=== PATIENT | male | born 1955 | race African-American/Black ===

== ENCOUNTER 2016-12-16 05:27 | Inpatient (IN) | payer OTHER ==
[2016-12-16] VITALS (11 sets, daily range): BP systolic 136–165; BP diastolic 83–105; PULSE 59–85; TEMP 36.6–37.2; O2SAT 93–97; Ht 188 cm; Wt 109.6 kg
[~2016-12-16] VITALS: Ht 188 cm; Wt 109.6 kg
[~2016-12-16 05:27] MED LIST: ALBUAER19 INH; ASPCH81X PO; CLOP1TAB15 PO; CTP/1 PO; EZET10TA47 PO; HYDR-5688 PO; HYT/2 PO; METO-596 PO; NITR0.4S UT
[2016-12-16] MEDS ORDERED: SODIUM CHLORIDE 0.9% 1000ML 1,000 ML IV STA ×2 (05:39→06:28)
[2016-12-16] MEDS ORDERED: HYDROmorphone INJ 1 MG/ML SYR IV STA ×2 (05:39→06:36)
[2016-12-16] MEDS ORDERED: ONDANSETRON INJ 2 MG/ML 2 ML VIAL IV STA (05:39)
--- NOTE | 2016-12-16 05:41 | EMERGENCY ROOM VISIT NOTE ---
History Report prepared by Jori: Rolf Tee Under the Supervision of: Dr. Vincenzo Bhakta M.D. First contact with patient: 05:33 Chief Complaint: KIDNEY STONE Stated Complaint: KIDNEY STONE PAIN History of Present Illness The patient is a 61 year old male who presents to the Emergency Room with complaints of left sided flank pain that began today. He rates his pain an 8.5/ 10 in severity. He has a past medical history of kidney stones. He states that this feels like a kidney stone. His last one was a year and a half ago, and it needed surgery to be removed. He denies any headaches, neck pain, loss of consciousness, chest pain, shortness of breath, or abdominal pain. He is currently nauseated. He is also experiencing cloudy urine that started a couple of days ago. He has only taken Tylenol for the pain that only helped him a little bit. Source of History: patient Onset: today Position: back (left flank) Symptom Intensity: 8.5/10 Quality: sharp Timing: constant Associated Symptoms: + nausea, + urinary symptoms, No LOC, No headache, No neck pain, No chest pain, No SOB, No abdominal pain Review of Systems See HPI for pertinent positives & negatives. A total of 10 systems reviewed and were otherwise negative. Past Medical & Surgical Medical Problems: (1) Asthma, Unspecified, W (Acute) Exacerbation (2) Benign hypertension (3) Coronary artery disease (4) Dyslipidemia (5) Hyperlipidemia Nec/Nos (6) Post percutaneous transluminal coronary angioplasty (7) Unstable angina Family History Cancer Diabetes mellitus Heart disease Hypertension Kidney disease Kidney stones Social History Smoking Status: Never Smoker Alcohol Use: occasionally Drug Use: none Marital Status: Housing Status: lives with significant other Occupation Status: employed Current/Historical Medications Scheduled Aspirin (Aspirin Chewable), 81 MG PO DAILY Clopidogrel (Plavix), 75 MG PO DAILY Ezetimibe (Zetia), 10 MG PO DAILY Hydrochlorothiazide (Hctz), 12.5 MG PO Q2D Isosorbide Mononitrate Ext Rel (Imdur Ext Rel), 60 MG PO QAM Lisinopril (Zestril), 10 MG PO DAILY Metoprolol Tartrate (Lopressor), 100 MG PO DAILY Rosuvastatin Calcium (Crestor), 40 MG PO DAILY Spironolactone (Aldactone), 25 MG PO QAM Allergies Coded Allergies: No Known Allergies (Verified , NKA, 11/15/12) Physical Exam Vital Signs Date Time Temp Pulse Resp B/P (MAP) Pulse Ox O2 Delivery O2 Flow Rate FiO2 12/16/16 06:46 70 20 142/98 94 Room Air 12/16/16 05:30 36.7 72 18 179/117 95 Room Air Physical Exam GENERAL: Patient is uncomfortable appearing and in moderate acute distress. HEENT: No acute trauma, normocephalic atraumatic, mucous membranes moist, no nasal congestion, no scleral icterus. NECK: No stridor, no adenopathy, no meningismus, trachea is midline. LUNGS: No dyspnea. Clear to auscultation and equal bilaterally. No wheeze, no rhonchi. HEART: Regular rate and rhythm. No murmurs, rubs, gallops appreciated. ABDOMEN: Soft, nontender, bowel sounds positive, no masses appreciated, no peritonitis. BACK: No midline tenderness. Left CVA tenderness to palpation. EXTREMITIES: Normal motion all extremities, no cyanosis, no edema. NEUROLOGIC: Alert and oriented, no acute motor or sensory deficits, no focal weakness, cranial nerves grossly intact. SKIN: No rash, no jaundice, no diaphoresis. Medical Decision & Procedures ER Provider Diagnostic Interpretation: Radiology results and stated below per my review and radiologist interpretation: CT SCAN OF THE ABDOMEN AND PELVIS WITHOUT IV CONTRAST CLINICAL HISTORY: Left flank pain. COMPARISON STUDY: Abdominal CT dated 04/05/2014. TECHNIQUE: CT scan of the abdomen and pelvis is performed from the lung bases to the proximal femora. Images are reviewed in the axial, sagittal, and coronal planes. IV contrast was not administered for this examination. Automated dose control exposure was utilized. CT DOSE: 1691.24 mGy.cm FINDINGS: Lung bases: The heart is enlarged and without pericardial effusion. The coronary arteries are densely calcified. The lung bases are clear noting bibasilar atelectasis. There is a small to moderate hiatal hernia. Liver: The unenhanced liver is normal in size, contour, and attenuation. There is no intrahepatic biliary ductal dilatation. Gallbladder: Unremarkable. Spleen: Normal in size and attenuation. Pancreas: Unremarkable. Adrenal glands: Unremarkable. Kidneys: The unenhanced kidneys. There is a 7 mm obstructing calculus in the proximal left ureter at the level of L2 seen on axial image #175. This causes moderate left-sided hydronephrosis. There is associated perinephric stranding and trace fluid. There is an additional 7 mm nonobstructing calculus in the right upper pole. No right renal calculi are identified and there is no right-sided hydronephrosis. There is a 3 cm cyst in the upper pole the right kidney. An additional 1.4 cm cyst is seen in the right lower pole. Abdominal vasculature: The abdominal aorta is normal in course and caliber noting mild atherosclerotic calcification. Bowel: The small bowel and colon are normal in course and caliber. There is moderate diverticulosis of the left colon without CT evidence of acute diverticulitis. Colonic fecal retention is observed. The appendix is well-visualized and normal. Peritoneum: There is no intraperitoneal free air or abdominal ascites. There is a fat-containing umbilical hernia. Lymphadenopathy: None. Pelvic viscera: The bladder, prostate, and seminal vesicles are normal as visualized. Skeletal structures: No lytic or blastic lesions are seen. Mild lumbosacral spondylosis is observed. A large disc bulge is noted at L4-L5. There is bony overgrowth seen anteriorly at the symphysis. IMPRESSION: 1. There is a 7 mm obstructing calculus in the proximal left ureter. This causes moderate left-sided hydronephrosis. 2. An additional nonobstructing left calculus is identified. 3. Cardiomegaly. 4. Moderate diverticulosis of the left colon without CT evidence of acute diverticulitis. 5. Additional findings as above. Electronically signed by: Trip Carmona M.D. 12/16/2016 6:56 AM Dictated Date/Time: 12/16/2016 6:48 AM Laboratory Results 12/16/16 05:48 Red Blood Count 4.43, Mean Corpuscular Volume 92.3, Mean Corpuscular Hemoglobin 30.9, Mean Corpuscular Hemoglobin Concent 33.5, Mean Platelet Volume 9.8, Neutrophils (%) (Auto) 70.5, Lymphocytes (%) (Auto) 16.5, Monocytes (%) (Auto) 6.6, Eosinophils (%) (Auto) 6.0, Basophils (%) (Auto) 0.2, Neutrophils # (Auto) 5.85, Lymphocytes # (Auto) 1.37, Monocytes # (Auto) 0.55, Eosinophils # (Auto) 0.50, Basophils # (Auto) 0.02 12/16/16 05:48 Test 12/16/16 05:40 12/16/16 05:48 Urine Color YELLOW Urine Appearance CLOUDY (CLEAR) Urine pH 5.0 (4.5-7.5) Urine Specific [place] >= 1.030 (1.000-1.030) Urine Protein 2+ (NEG) Urine Glucose (UA) NEG (NEG) Urine Ketones TRACE (NEG) Urine Occult Blood 3+ (NEG) Urine Nitrite NEG (NEG) Urine Bilirubin NEG (NEG) Urine Urobilinogen NEG (NEG) Urine Leukocyte Esterase NEG (NEG) Urine RBC >30 /hpf (0-4) Urine WBC 5-10 /hpf (0-5) Urine Epithelial Cells >30 /lpf (0-5) Urine Bacteria 1+ (NEG) White Blood Count 8.31 K/uL (4.8-10.8) Red Blood Count 4.43 M/uL (4.7-6.1) Hemoglobin 13.7 g/dL (14.0-18.0) Hematocrit 40.9 % (42-52) Mean Corpuscular Volume 92.3 fL (80-100) Mean Corpuscular Hemoglobin 30.9 pg (25-34) Mean Corpuscular Hemoglobin Concent 33.5 g/dl (32-36) Platelet Count 208 K/uL (130-400) Mean Platelet Volume 9.8 fL (7.4-10.4) Neutrophils (%) (Auto) 70.5 % Lymphocytes (%) (Auto) 16.5 % Monocytes (%) (Auto) 6.6 % Eosinophils (%) (Auto) 6.0 % Basophils (%) (Auto) 0.2 % Neutrophils # (Auto) 5.85 K/uL (1.4-6.5) Lymphocytes # (Auto) 1.37 K/uL (1.2-3.4) Monocytes # (Auto) 0.55 K/uL (0.11-0.59) Eosinophils # (Auto) 0.50 K/uL (0-0.5) Basophils # (Auto) 0.02 K/uL (0-0.2) RDW Standard Deviation 46.4 fL (36.4-46.3) RDW Coefficient of Variation 13.7 % (11.5-14.5) Immature Granulocyte % (Auto) 0.2 % Immature Granulocyte # (Auto) 0.02 K/uL (0.00-0.02) Anion Gap 4.0 mmol/L (3-11) Est Creatinine Clear Calc Drug Dose 69.9 ml/min Estimated GFR () 58.2 Estimated GFR (Non- 50.2 BUN/Creatinine Ratio 16.6 (10-20) Calcium Level 9.3 mg/dl (8.5-10.1) Total Bilirubin 0.4 mg/dl (0.2-1) Direct Bilirubin < 0.1 mg/dl (0-0.2) Aspartate Amino Transf (AST/SGOT) 19 U/L (15-37) Alanine Aminotransferase (ALT/SGPT) 55 U/L (12-78) Alkaline Phosphatase 83 U/L (45-117) Total Protein 7.6 gm/dl (6.4-8.2) Albumin 3.9 gm/dl (3.4-5.0) Lipase 285 U/L (73-393) Laboratory results as reviewed by me. Medications Administered Medications (Trade) Dose Ordered Sig/Cynthia Route Start Time Stop Time Status Last Admin Dose Admin Hydromorphone HCl (Dilaudid Inj) 1 mg NOW STAT IV 12/16/16 05:39 12/16/16 05:41 DC 12/16/16 05:49 1 MG Ondansetron HCl (Zofran Inj) 4 mg NOW STAT IV 12/16/16 05:39 12/16/16 05:41 DC 12/16/16 05:49 4 MG Sodium Chloride 1,000 ml @ 999 mls/hr Q1H1M STAT IV 12/16/16 05:39 12/16/16 06:39 DC 12/16/16 05:48 999 MLS/HR Sodium Chloride 1,000 ml @ 999 mls/hr Q1H1M STAT IV 12/16/16 06:28 12/16/16 07:28 DC 12/16/16 06:44 999 MLS/HR Hydromorphone HCl (Dilaudid Inj) 1 mg NOW STAT IV 12/16/16 06:36 12/16/16 06:37 DC 12/16/16 06:45 1 MG ED Course 0533: The patient was evaluated in room B6. A complete history and physical exam was performed. 0539: Ordered Sodium Chloride 1000 ml @ 999 mls/hr IV, Zofran Inj 4 mg IV, Dilaudid Inj 1 mg IV 0628: Ordered Sodium Chloride 1000 ml @ 999 mls/hr IV 0634: I was informed that the patient is having increased pain. I will order him more pain medication. 0636: Ordered Dilaudid Inj 1 mg IV 0730: Upon reevaluation, the patient is resting. Discussed results and treatment plan with the patient. He verbalized understanding and agreement with the treatment plan. The patient will be evaluated for further management. Medical Decision Differential: Renal Colic, Pyelonephritis, Hydronephrosis, Appendicitis, Diverticulitis, Retroperitoneal Bleed/Infection, Aortic Pathology, MSK, Neurologic Pathology, amongst other pathologies entertained. Medication Reconciliation: I attest that I have personally reviewed the patient 's current medication list. Blood Pressure Screening: Patient was found to have a slightly elevated blood pressure due to circumstances. I do not believe that the patient requires hypertension monitoring. 61 yr old male arrives with left flank pain sudden onset this afternoon. Associated nausea. History of 2mm distal left ureteral stone requiring surgical removal. Today with 7 mm proximal stone and moderate hydro. He has stable Cr but with his history, need for repetitive dosing narcotics and after discussing options with patient, we will bring him in for further monitoring and treatment. Consults Time Called: 724 Consulting Physician: Ajith Kauffman Returned Call: 07 A provider from this medical service will be evaluating the patient for further management and care. Impression Primary Impression: Left ureteral stone Additional Impressions: Hydronephrosis, left Intractable pain Scribe Attestation The scribe's documentation has been prepared under my direction and personally reviewed by me in its entirety. I confirm that the note above accurately reflects all work, treatment, procedures, and medical decision making performed by me. Departure Information Dispostion Being Evaluated By Hospitalist Referrals Ron Treadwell D.OLaw (PCP) Patient Instructions [facility] Problem Qualifiers
[2016-12-16] MEDS ORDERED: ROSU40TA PO (05:50)
[2016-12-16] MEDS ORDERED: HYDR25TA4 PO (05:51)
[2016-12-16] MEDS ORDERED: SPIR25TA PO (05:52)
[2016-12-16] MEDS ORDERED: ISOS60TA25 PO (05:53)
[2016-12-16] MEDS ORDERED: LISI-725 PO (05:54)
[2016-12-16 06:10] LABS: MANUAL MICROSCOPIC REQUIRED? YES; URINE APPEARANCE CLOUDY (CLEAR); URINE BILIRUBIN NEG (NEG); URINE COLOR YELLOW; URINE NITRITE NEG (NEG); URINE SPECIFIC GRAVITY >= 1.030 (1.000-1.030); UROBILINOGEN NEG (NEG)
[2016-12-16 06:13] LABS: BASO % 0.2 %; BASO ABS # 0.02 K/uL (0-0.2); COMPLETE YES; HEMATOCRIT 40.9 % (42-52); IG% 0.2 %; LYMPH % 16.5 %; LYMPH ABS # 1.37 K/uL (1.2-3.4); MEAN CELL VOLUME 92.3 fL (80-100); MEAN CORPUSCULAR HEMOGLOBIN 30.9 pg (25-34); MEAN CORPUSCULAR HGB CONC 33.5 g/dl (32-36); MEAN PLATELET VOLUME 9.8 fL (7.4-10.4); MONO % 6.6 %; NEUT % 70.5 %; PLATELET COUNT 208 K/uL (130-400); RED BLOOD COUNT 4.43 M/uL (4.7-6.1); WHITE BLOOD COUNT 8.31 K/uL (4.8-10.8)
[2016-12-16 06:20] LABS: REVIEW REQ? NO
[2016-12-16 06:21] LABS: ALT/SGPT 55 U/L (12-78); AST/SGOT 19 U/L (15-37); BLOOD UREA NITROGEN 25 mg/dl (7-18); BUN/CREATININE RATIO 16.6 (10-20); CALCIUM 9.3 mg/dl (8.5-10.1); CARBON DIOXIDE 28 mmol/L (21-32); CHLORIDE 109 mmol/L (98-107); GLUCOSE 110 mg/dl (70-99); POTASSIUM 3.8 mmol/L (3.5-5.1); SODIUM 141 mmol/L (136-145)
[2016-12-16 06:24] LABS: ALKALINE PHOSPHATASE 83 U/L (45-117)
[2016-12-16 06:36] LABS: URINE RBC >30 /hpf (0-4)
[2016-12-16 06:42] LABS: URINE BACTERIA 1+ (NEG); ZZUR CULT IF INDIC CLEAN CATCH YES
--- NOTE | 2016-12-16 06:58 | DIAGNOSTIC IMAGING REPORT ---
CT SCAN OF THE ABDOMEN AND PELVIS WITHOUT IV CONTRAST CLINICAL HISTORY: Left flank pain. COMPARISON STUDY: Abdominal CT dated 04/05/2014. TECHNIQUE: CT scan of the abdomen and pelvis is performed from the lung bases to the proximal femora. Images are reviewed in the axial, sagittal, and coronal planes. IV contrast was not administered for this examination. Automated dose control exposure was utilized. CT DOSE: 1691.24 mGy.cm FINDINGS: Lung bases: The heart is enlarged and without pericardial effusion. The coronary arteries are densely calcified. The lung bases are clear noting bibasilar atelectasis. There is a small to moderate hiatal hernia. Liver: The unenhanced liver is normal in size, contour, and attenuation. There is no intrahepatic biliary ductal dilatation. Gallbladder: Unremarkable. Spleen: Normal in size and attenuation. Pancreas: Unremarkable. Adrenal glands: Unremarkable. Kidneys: The unenhanced kidneys. There is a 7 mm obstructing calculus in the proximal left ureter at the level of L2 seen on axial image #175. This causes moderate left-sided hydronephrosis. There is associated perinephric stranding and trace fluid. There is an additional 7 mm nonobstructing calculus in the right upper pole. No right renal calculi are identified and there is no right-sided hydronephrosis. There is a 3 cm cyst in the upper pole the right kidney. An additional 1.4 cm cyst is seen in the right lower pole. Abdominal vasculature: The abdominal aorta is normal in course and caliber noting mild atherosclerotic calcification. Bowel: The small bowel and colon are normal in course and caliber. There is moderate diverticulosis of the left colon without CT evidence of acute diverticulitis. Colonic fecal retention is observed. The appendix is well-visualized and normal. Peritoneum: There is no intraperitoneal free air or abdominal ascites. There is a fat-containing umbilical hernia. Lymphadenopathy: None. Pelvic viscera: The bladder, prostate, and seminal vesicles are normal as visualized. Skeletal structures: No lytic or blastic lesions are seen. Mild lumbosacral spondylosis is observed. A large disc bulge is noted at L4-L5. There is bony overgrowth seen anteriorly at the symphysis. IMPRESSION: 1. There is a 7 mm obstructing calculus in the proximal left ureter. This causes moderate left-sided hydronephrosis. 2. An additional nonobstructing left calculus is identified. 3. Cardiomegaly. 4. Moderate diverticulosis of the left colon without CT evidence of acute diverticulitis. 5. Additional findings as above. Electronically signed by: Trip Carmona M.D. 12/16/2016 6:56 AM Dictated Date/Time: 12/16/2016 6:48 AM
[2016-12-16] MEDS ORDERED: NTRGSL/4 UT (09:09)
[2016-12-16] MEDS ORDERED: UBIQ1CAP8 PO (09:09)
[2016-12-16] MEDS ORDERED: VNTHFA/IN INH (09:11)
[2016-12-16] MEDS ORDERED: MoRPHine SULFATE 2 MG/ML CARP IV PRN (09:15)
[2016-12-16] MEDS ORDERED: ONDANSETRON INJ 2 MG/ML 2 ML VIAL IV PRN ×2 (09:15→17:15)
[2016-12-16] MEDS ORDERED: MoRPHine SULFATE 2 MG/ML CARP ONE (09:29)
[2016-12-16] MEDS: SODIUM CHLORIDE 0.9% 1000ML 1,000 ML IV SCH ×2 (09:40→17:58)
[2016-12-16] MEDS ORDERED: MIDAZOLAM HCL 1 MG/ML 2ML VIAL ONE (15:46)
[2016-12-16] MEDS ORDERED: FENTANYL CITRATE INJ 50 MCG/1 ML 2 ML VIAL ONE (15:46)
--- NOTE | 2016-12-16 15:50 | Urology Consultation ---
History General Date of Service: Dec 16, 2016. Chief Complaint: stones Primary Care Physician: Ron Treadwell D.O. Pt seen a urologist before?: Yes If yes, why?: stones History of Present Illness I am asked by Dr Raines to evaluate and treat patient for ureteral stone with colic. he has had pain and gross hematuria for 2 days. he came to ER this am. He has a 7mm obstructing left upper ureteral stone and a non obstructing 5mm left upper pole stone. He is comfortable but needs narcotics regularly for pain. He had a similar stone in may 2014. Imaging Imaging: CT Laboratory Results Past 24 Hours Test 12/16/16 05:40 12/16/16 05:48 Range/Units Urine Color YELLOW Urine Appearance CLOUDY CLEAR Urine pH 5.0 4.5-7.5 Urine Specific [place] >= 1.030 1.000-1.030 Urine Protein 2+ NEG Urine Glucose (UA) NEG NEG Urine Ketones TRACE NEG Urine Occult Blood 3+ NEG Urine Nitrite NEG NEG Urine Bilirubin NEG NEG Urine Urobilinogen NEG NEG Urine Leukocyte Esterase NEG NEG Urine RBC >30 0-4 /hpf Urine WBC 5-10 0-5 /hpf Urine Epithelial Cells >30 0-5 /lpf Urine Bacteria 1+ NEG White Blood Count 8.31 4.8-10.8 K/uL Red Blood Count 4.43 4.7-6.1 M/uL Hemoglobin 13.7 14.0-18.0 g/dL Hematocrit 40.9 42-52 % Mean Corpuscular Volume 92.3 80-100 fL Mean Corpuscular Hemoglobin 30.9 25-34 pg Mean Corpuscular Hemoglobin Concent 33.5 32-36 g/dl Platelet Count 208 130-400 K/uL Mean Platelet Volume 9.8 7.4-10.4 fL Neutrophils (%) (Auto) 70.5 % Lymphocytes (%) (Auto) 16.5 % Monocytes (%) (Auto) 6.6 % Eosinophils (%) (Auto) 6.0 % Basophils (%) (Auto) 0.2 % Neutrophils # (Auto) 5.85 1.4-6.5 K/uL Lymphocytes # (Auto) 1.37 1.2-3.4 K/uL Monocytes # (Auto) 0.55 0.11-0.59 K/uL Eosinophils # (Auto) 0.50 0-0.5 K/uL Basophils # (Auto) 0.02 0-0.2 K/uL RDW Standard Deviation 46.4 36.4-46.3 fL RDW Coefficient of Variation 13.7 11.5-14.5 % Immature Granulocyte % (Auto) 0.2 % Immature Granulocyte # (Auto) 0.02 0.00-0.02 K/uL Sodium Level 141 136-145 mmol/L Potassium Level 3.8 3.5-5.1 mmol/L Chloride Level 109 98-107 mmol/L Carbon Dioxide Level 28 21-32 mmol/L Anion Gap 4.0 3-11 mmol/L Blood Urea Nitrogen 25 7-18 mg/dl Creatinine 1.50 0.60-1.40 mg/dl Est Creatinine Clear Calc Drug Dose 69.9 ml/min Estimated GFR () 58.2 Estimated GFR (Non- 50.2 BUN/Creatinine Ratio 16.6 10-20 Random Glucose 110 70-99 mg/dl Calcium Level 9.3 8.5-10.1 mg/dl Total Bilirubin 0.4 0.2-1 mg/dl Direct Bilirubin < 0.1 0-0.2 mg/dl Aspartate Amino Transf (AST/SGOT) 19 15-37 U/L Alanine Aminotransferase (ALT/SGPT) 55 12-78 U/L Alkaline Phosphatase 83 45-117 U/L Total Protein 7.6 6.4-8.2 gm/dl Albumin 3.9 3.4-5.0 gm/dl Lipase 285 73-393 U/L Microbiology Results 12/16/16 Urine Culture, Received Pending Labs were reviewed and are within normal limits unless listed below. Labs are available in the chart and at [facility] Problem List Medical Problems: (1) Hydronephrosis, left Status: Acute (2) Intractable pain Status: Acute (3) Left ureteral stone Status: Acute Past History asthma, coronary artery disease, high cholesterol, hypertension, myocardial infarction Past Surgical History: no surgical history Additional Comments: stone surgery 2014 Family History Cancer Diabetes mellitus Heart disease Hypertension Kidney disease Kidney stones dad had stones Social History Hx Tobacco Use In Past Year?: No Smoking: quit greater than 1 year Alcohol: occasional, other Drug use: none Marital status: Housing status: lives alone, lives with family Occupation status: employed Immunizations History of Influenza Vaccine: Yes History of Tetanus Vaccine?: Yes History of Pneumococcal: Yes History of Hepatitis B Vaccine: Unknown History of MDRO No Allergies Coded Allergies: No Known Allergies (Verified , NKA, 11/15/12) Medications Home Medications: Home Meds and Scripts Medications Dose Route/Sig Max Daily Dose Days Date Category Dose Instructions Ventolin Hfa (Albuterol) 200 Puffs/60549 Mcg Aers 2 Puffs INH Q4H PRN 12/16/16 Reported Nitrostat (Nitroglycerin) 0.4 Mg Tab 0.4 Mg UT PRN PRN 12/16/16 Reported Ubiquinol 100 Mg Cap 50 Mg PO DAILY 12/16/16 Reported Zestril (Lisinopril) 20 Mg Tab 10 Mg PO DAILY 12/16/16 Reported 1/2 TABLET DOSE Imdur Ext Rel (Isosorbide Mononitrate) 60 Mg Ertab 60 Mg PO QAM 12/16/16 Reported Aldactone (Spironolactone) 25 Mg Tab 25 Mg PO QAM 12/16/16 Reported Hctz (Hydrochlorothiazide) 25 Mg Tab 12.5 Mg PO Q2D 12/16/16 Reported Crestor (Rosuvastatin Calcium) 40 Mg Tab 40 Mg PO DAILY 12/16/16 Reported Zetia (Ezetimibe) 10 Mg Tab 10 Mg PO DAILY 11/15/12 Reported Plavix (Clopidogrel Bisulfate) 75 Mg Tab 75 Mg PO DAILY 11/15/12 Reported Lopressor (Metoprolol Tartrate) 100 Mg Tab 100 Mg PO DAILY 11/15/12 Reported Aspirin Chewable (Aspirin) 81 Mg Chew 81 Mg PO DAILY 11/15/12 Reported Inpatient Medications: Current Inpatient Medications Medications (Trade) Dose Ordered Sig/Cynthia Route Start Time Stop Time Status Last Admin Dose Admin Morphine Sulfate (MoRPHine SULFATE INJ) 2 mg Q4HWA PRN IV 12/16/16 09:15 12/30/16 09:14 12/16/16 13:30 2 MG Sodium Chloride 1,000 ml @ 125 mls/hr Q8H IV 12/16/16 09:15 01/15/17 09:14 12/16/16 09:40 125 MLS/HR Ondansetron HCl (Zofran Inj) 4 mg Q6H PRN IV 12/16/16 09:15 01/15/17 09:14 12/16/16 13:28 4 MG Review of Systems Review of Systems Constitutional: No fever, No chills Neurological: No dizzy, No passing out, No seizures Endocrine: No tired/sluggish Gastrointestinal: + abdominal pain, + nausea, No vomiting, No constipation, No diarrhea Respiratory: No shortness of breath, No wheezing, No chronic cough Male : + blood in urine, + kidney stones, + nocturia more than once/night, No frequent urination, No painful urination Physical Exam Vital Signs: Vital Signs Past 12 Hours Date Time Temp Pulse Resp B/P (MAP) Pulse Ox O2 Delivery O2 Flow Rate FiO2 12/16/16 14:54 37.2 64 18 155/88 (110) 93 12/16/16 10:47 64 157/90 (112) 12/16/16 09:17 36.7 61 18 165/105 (125) 97 Room Air 12/16/16 09:17 Room Air 12/16/16 09:15 142/98 12/16/16 08:00 94 Room Air 12/16/16 08:00 70 16 144/89 94 Room Air 12/16/16 06:46 70 20 142/98 94 Room Air 12/16/16 05:30 36.7 72 18 179/117 95 Room Air Physical Exam: General Appearance: WD/WN, no apparent distress, + pertinent finding ( overweight) Eyes: bilateral eyes normal inspection ENT: hearing grossly normal Neck: supple, no adenopathy Respiratory/Chest: lungs clear, normal breath sounds, no respiratory distress, no accessory muscle use Cardiovascular: regular rate, rhythm, no edema Extremities: non-tender, normal inspection, no pedal edema, no calf tenderness Neurologic/Psychiatric: alert, normal mood/affect, oriented x 3 Skin: normal color, warm/dry, no rash Assessment & Plan Assessment & Plan left 7mm upper ureteral stone with hydro and mild renal insufficiency plan left uscope laser litho basket stone extraction stent similar to last time will also try to get the left upper renal stone is possible. I explained surgery and he had an opportunity to ask questions and signed consent. 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
--- NOTE | 2016-12-16 16:00 | History and Physical ---
History & Physical Date & Time of Service: Dec 16, 2016 at 09:12 Chief Complaint: Kidney Stone Pain Primary Care Physician: Ron Treadwell D.OLaw History of Present Illness Source: patient, partner, clinic records, hospital records 61 year old male with PMH of Kidney stone with laser lithotripsy about 2 yrs ago , HTN, Dyslipidemia, Ischemic heart dx presents to the Emergency Room with complaints of left sided flank pain that started last night. Pt said that this morning pain got worst. grade his pain about 9/10 in severity. he said that the pain is sharp and radiated across his left L lower abdomen. He said that that this pain feels similar like his kidney stone he had 2 yrs ago. He said that his urine is dark. He denies any headaches, fever, chills, chest pain, palpitation shortness of breath, or abdominal pain. He currently feels nauseated. He has only taken Tylenol for the pain that helped him a little bit. In the ER he received dilaudid that helped with the pain. He had a CT abd/ pelvis done that showed Left obstructing ureteral stone. Past Medical/Surgical History Medical Problems: (1) Asthma, Unspecified, W (Acute) Exacerbation Status: Chronic (2) Benign hypertension Status: Chronic (3) Coronary artery disease Status: Chronic (4) Dyslipidemia Status: Chronic (5) Hyperlipidemia Nec/Nos Status: Chronic (6) Post percutaneous transluminal coronary angioplasty Status: Resolved (7) Unstable angina Status: Resolved Family History Cancer Diabetes mellitus Heart disease Hypertension Kidney disease Kidney stones Social History Smoking Status: Never Smoker Drug Use: none Marital Status: Housing status: lives alone Occupational Status: employed Immunizations History of Influenza Vaccine: Yes History of Tetanus Vaccine?: Yes History of Pneumococcal: Yes History of Hepatitis B Vaccine: Unknown Multi-Drug Resistant Organisms History of MDRO: No Allergies Coded Allergies: No Known Allergies (Verified , NKA, 11/15/12) Home Medications Scheduled Aspirin (Aspirin Chewable), 81 MG PO DAILY Clopidogrel (Plavix), 75 MG PO DAILY Ezetimibe (Zetia), 10 MG PO DAILY Hydrochlorothiazide (Hctz), 12.5 MG PO Q2D Isosorbide Mononitrate Ext Rel (Imdur Ext Rel), 60 MG PO QAM Lisinopril (Zestril), 10 MG PO DAILY Metoprolol Tartrate (Lopressor), 100 MG PO DAILY Rosuvastatin Calcium (Crestor), 40 MG PO DAILY Spironolactone (Aldactone), 25 MG PO QAM Ubiquinol (Ubiquinol), 50 MG PO DAILY Scheduled PRN Albuterol Hfa (Ventolin Hfa), 2 PUFFS INH Q4H PRN for SOB/Wheezing Nitroglycerin (Nitrostat), 0.4 MG UT PRN PRN for Chest Pain Review of Systems Constitutional: No fever, No chills, No weakness Eyes: No worsening of vision, No discharge ENT: No hearing loss, No nasal symptoms, No sore throat Respiratory: No cough, No sputum, No wheezing, No shortness of breath Cardiovascular: No chest pain, No orthopnea, No claudication, No palpitations Abdomen: + nausea, No diarrhea, No constipation Musculoskeletal: No calf pain Genitourinary - Male: + problem reported (dark urine) Neurologic: No memory loss, No paralysis, No weakness Psychiatric: No anxiety, No substance abuse Endocrine: No fatigue Hematologic / Lymphatic: No night sweats Integumentary: No rash, No itch Physical Exam Vital Signs Date Time Temp Pulse Resp B/P (MAP) Pulse Ox O2 Delivery O2 Flow Rate FiO2 12/16/16 08:00 94 Room Air 12/16/16 08:00 70 16 144/89 94 Room Air 12/16/16 06:46 70 20 142/98 94 Room Air 12/16/16 05:30 36.7 72 18 179/117 95 Room Air General Appearance: WD/WN, no apparent distress Head: normocephalic, atraumatic Eyes: normal inspection, PERRL, EOMI ENT: normal ENT inspection, hearing grossly normal Neck: supple, no JVD Respiratory/Chest: lungs clear, normal breath sounds, no respiratory distress, no accessory muscle use Cardiovascular: regular rate, rhythm, no JVD, no murmur Abdomen/GI: normal bowel sounds, soft Back: + left CVA tenderness Extremities/Musculoskelatal: no calf tenderness Neurologic/Psych: rn manager II-XII nml as tested, no motor/sensory deficits, alert, oriented x 3 Skin: warm/dry, no rash Lymphatic: no adenopathy Diagnostics Laboratory Results Results Past 24 Hours Test 12/16/16 05:40 12/16/16 05:48 Range/Units Urine Color YELLOW Urine Appearance CLOUDY CLEAR Urine pH 5.0 4.5-7.5 Urine Specific [place] >= 1.030 1.000-1.030 Urine Protein 2+ NEG Urine Glucose (UA) NEG NEG Urine Ketones TRACE NEG Urine Occult Blood 3+ NEG Urine Nitrite NEG NEG Urine Bilirubin NEG NEG Urine Urobilinogen NEG NEG Urine Leukocyte Esterase NEG NEG Urine RBC >30 0-4 /hpf Urine WBC 5-10 0-5 /hpf Urine Epithelial Cells >30 0-5 /lpf Urine Bacteria 1+ NEG White Blood Count 8.31 4.8-10.8 K/uL Red Blood Count 4.43 4.7-6.1 M/uL Hemoglobin 13.7 14.0-18.0 g/dL Hematocrit 40.9 42-52 % Mean Corpuscular Volume 92.3 80-100 fL Mean Corpuscular Hemoglobin 30.9 25-34 pg Mean Corpuscular Hemoglobin Concent 33.5 32-36 g/dl Platelet Count 208 130-400 K/uL Mean Platelet Volume 9.8 7.4-10.4 fL Neutrophils (%) (Auto) 70.5 % Lymphocytes (%) (Auto) 16.5 % Monocytes (%) (Auto) 6.6 % Eosinophils (%) (Auto) 6.0 % Basophils (%) (Auto) 0.2 % Neutrophils # (Auto) 5.85 1.4-6.5 K/uL Lymphocytes # (Auto) 1.37 1.2-3.4 K/uL Monocytes # (Auto) 0.55 0.11-0.59 K/uL Eosinophils # (Auto) 0.50 0-0.5 K/uL Basophils # (Auto) 0.02 0-0.2 K/uL RDW Standard Deviation 46.4 36.4-46.3 fL RDW Coefficient of Variation 13.7 11.5-14.5 % Immature Granulocyte % (Auto) 0.2 % Immature Granulocyte # (Auto) 0.02 0.00-0.02 K/uL Sodium Level 141 136-145 mmol/L Potassium Level 3.8 3.5-5.1 mmol/L Chloride Level 109 98-107 mmol/L Carbon Dioxide Level 28 21-32 mmol/L Anion Gap 4.0 3-11 mmol/L Blood Urea Nitrogen 25 7-18 mg/dl Creatinine 1.50 0.60-1.40 mg/dl Est Creatinine Clear Calc Drug Dose 69.9 ml/min Estimated GFR () 58.2 Estimated GFR (Non- 50.2 BUN/Creatinine Ratio 16.6 10-20 Random Glucose 110 70-99 mg/dl Calcium Level 9.3 8.5-10.1 mg/dl Total Bilirubin 0.4 0.2-1 mg/dl Direct Bilirubin < 0.1 0-0.2 mg/dl Aspartate Amino Transf (AST/SGOT) 19 15-37 U/L Alanine Aminotransferase (ALT/SGPT) 55 12-78 U/L Alkaline Phosphatase 83 45-117 U/L Total Protein 7.6 6.4-8.2 gm/dl Albumin 3.9 3.4-5.0 gm/dl Lipase 285 73-393 U/L Microbiology Results 12/16/16 Urine Culture, Received Pending Diagnostic Radiology CT SCAN OF THE ABDOMEN AND PELVIS WITHOUT IV CONTRAST CLINICAL HISTORY: Left flank pain. COMPARISON STUDY: Abdominal CT dated 04/05/2014. TECHNIQUE: CT scan of the abdomen and pelvis is performed from the lung bases to the proximal femora. Images are reviewed in the axial, sagittal, and coronal planes. IV contrast was not administered for this examination. Automated dose control exposure was utilized. CT DOSE: 1691.24 mGy.cm FINDINGS: Lung bases: The heart is enlarged and without pericardial effusion. The coronary arteries are densely calcified. The lung bases are clear noting bibasilar atelectasis. There is a small to moderate hiatal hernia. Liver: The unenhanced liver is normal in size, contour, and attenuation. There is no intrahepatic biliary ductal dilatation. Gallbladder: Unremarkable. Spleen: Normal in size and attenuation. Pancreas: Unremarkable. Adrenal glands: Unremarkable. Kidneys: The unenhanced kidneys. There is a 7 mm obstructing calculus in the proximal left ureter at the level of L2 seen on axial image #175. This causes moderate left-sided hydronephrosis. There is associated perinephric stranding and trace fluid. There is an additional 7 mm nonobstructing calculus in the right upper pole. No right renal calculi are identified and there is no right-sided hydronephrosis. There is a 3 cm cyst in the upper pole the right kidney. An additional 1.4 cm cyst is seen in the right lower pole. Abdominal vasculature: The abdominal aorta is normal in course and caliber noting mild atherosclerotic calcification. Bowel: The small bowel and colon are normal in course and caliber. There is moderate diverticulosis of the left colon without CT evidence of acute diverticulitis. Colonic fecal retention is observed. The appendix is well-visualized and normal. Peritoneum: There is no intraperitoneal free air or abdominal ascites. There is a fat-containing umbilical hernia. Lymphadenopathy: None. Pelvic viscera: The bladder, prostate, and seminal vesicles are normal as visualized. Skeletal structures: No lytic or blastic lesions are seen. Mild lumbosacral spondylosis is observed. A large disc bulge is noted at L4-L5. There is bony overgrowth seen anteriorly at the symphysis. IMPRESSION: 1. There is a 7 mm obstructing calculus in the proximal left ureter. This causes moderate left-sided hydronephrosis. 2. An additional nonobstructing left calculus is identified. 3. Cardiomegaly. 4. Moderate diverticulosis of the left colon without CT evidence of acute diverticulitis. 5. Additional findings as above. Electronically signed by: Trip Carmona M.D. 12/16/2016 6:56 AM Dictated Date/Time: 12/16/2016 6:48 AM Impression Assessment and Plan 61 yo male present with Left flank pain LEFT OBSTRUCTING URETERAL STONES WITH HYDRONEPHROSIS CT ABD/PELVIS showed 7 mm obstructing calculus in the proximal left ureter. Continue IVF Morphine for pain UA negative for leukocytes and nitrite Case discussed with Urology dr. Hancock that plans to take him to OR today Will keep NPO for the surgery Will add Flomax daily JEREMI Secondary to Left obstructing ureteral stone with moderate hydronephrosis Creatine on admission 1.5 baseline creatine btw 1.1 to 1.2 Continue IVF avoid nephrotoxic agents Monitor BMP Already took his morning diuretic med Will hold HCTZ and Spironolactone CAD s/p stent Asymptomatic Already took his morning med Continue metoprol/asa/plavix/crestor HTN BP elevated Possible related to pain Hold HCTZ and spironolactone due to JEREMI Continue metoprolol and imdur will add prn hydralazine Dyslipidemia Continue Crestor and ezetimibe DVT px SCDs for now due to anticipate surgery CODE STATUS FULL CODE Level of Care Med/Surg Advanced Directives Existing Living Will: No Existing Power of E Commerce Web Developer: No Resuscitation Status FULL RESUSCITATION VTE Prophylaxis VTE Risk Assessment Done? Y/N: Yes Risk Level: Moderate Given or contraindicated: SCD's
[2016-12-16] MEDS ORDERED: CONRAY 30% 150ML BOTTLE ONE (16:09)
[2016-12-16] MEDS ORDERED: BELLADONNA/OPIUM SUPP 60 MG SUPP PR ONE (16:45)
[2016-12-16] MEDS ORDERED: ONDANSETRON INJ 2 MG/ML 2 ML VIAL ONE (16:45)
[2016-12-16] MEDS ORDERED: METOCLOPRAMIDE HCL INJ 5 MG/ML 2 ML VIAL ONE (16:45)
[2016-12-16] MEDS ORDERED: LIDOCAINE HCL 2% 2 ML VIAL (20MG/ML) ONE (16:45)
[2016-12-16] MEDS ORDERED: PROPOFOL IV EMULSION 10 MG/ML 20 ML VIAL IV ONE (16:45)
--- NOTE | 2016-12-16 17:05 | [facility] Operative Report ---
Operative Report Operative Date Dec 16, 2016. Pre-Operative Diagnosis Left obstructing ureteral stone, wtih renal colic Post-Operative Diagnosis Left obstructing ureteral stone and renal stone Procedure(s) Performed Cystoscopy, Left ureteral laser lithotripsy, Left Ureteral Stent Insertion Surgeon Dr. Hancock Floodplain Manager Surgeon(s) none Estimated Blood Loss 5cc Findings faintly radio-opaque stone left upper ureter. Radiolucent stone left upper pole Fluids 500mL Specimens A. Left ureteral stone fragments Drains 6 fr 24 centiemter double j stent Anesthesia LMA Complication(s) None Disposition Recovery Room / PACU Indications left upper ureteral stone 7mm with obstruction. Creatinine is slightly elevated. He failed to pass a much smaller stone in 2013. We plan surgical removal. Description of Procedure Patient was given general LMA anesthesia and placed in lithotomy position. His genitals were prepped and draped in sterile fashion. Time out held with team. I placed a 21 fr rigid cystoscope to bladder. The urethra is unremarkable. The prostate is midly enlarged and bladder neck is a bit elevated. The UOs are normal. I placed a bentson wire up left ureter and met slight resistance at the 7mm oval slightly radio-opaque upj stone. The wire passage pushed stone into kidney. The efflux after wire placement is brisk under pressure and bloody. I removed cystoscope and placed a dual lumen cath,. I placed a second wire. The scope would not pass over bentson but did barely pass the UVJ over the stiff wire. I found the stone in the kidney in an upepr pole calyx and lasered it with 200 micron holmium laser into 6 pieces. I also lasered the upper pole calyx partly under urothelium into many small ieces. I used basket to extract 2 pieces but then UVJ was too tight to pass again. Stone is very yellow so likely uric acid. I placed a 24 centimeter 6 Fr double J stent easily. There is brisk efflux after placement. I left bladder empty and concluded case. I placed a belladonna and opium suppository for post-op pain. He transferred to recovery under my escort, in stable condition. 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 Any exceptions are noted below.
[2016-12-16] MEDS ORDERED: LABETALOL HCL IV 5 MG/ML 20ML IV PRN (17:15)
[2016-12-16] MEDS ORDERED: OXYCODONE HCL IR 5 MG TAB (IMMEDIATE RELEASE) PO PRN (17:15)
[2016-12-16] MEDS ORDERED: HYDROmorphone INJ 2 MG/ML SYR/VIAL IV PRN (17:15)
[2016-12-16] MEDS ORDERED: PHENAZOPYRIDINE HCL 200 MG TAB PO PRN (17:15)
[2016-12-16] MEDS ORDERED: ATROPINE SULFATE 0.1 MG/ML 5ML SYR IV PRN (17:15)
--- NOTE | 2016-12-16 18:35 | Anesthesiology Progress Note ---
Anesthesia Post Op Note Date & Time Dec 16, 2016 at 18:35 Vital Signs Pain Intensity: 0.0 Vital Signs Past 12 Hours Date Time Temp Pulse Resp B/P (MAP) Pulse Ox O2 Delivery O2 Flow Rate FiO2 12/16/16 18:18 36.6 59 18 143/86 (105) 96 Room Air 12/16/16 17:58 96 Room Air 12/16/16 17:45 96 Room Air 12/16/16 17:35 36.4 67 16 139/85 96 Room Air 12/16/16 17:25 76 16 146/93 98 Room Air 12/16/16 17:16 61 16 134/88 100 Nasal Cannula 3 12/16/16 17:05 60 16 138/89 98 Nasal Cannula 3 12/16/16 16:56 36.0 66 16 137/93 97 Nasal Cannula 3 12/16/16 14:54 37.2 64 18 155/88 (110) 93 12/16/16 10:47 64 157/90 (112) 12/16/16 09:17 36.7 61 18 165/105 (125) 97 Room Air 12/16/16 09:17 Room Air 12/16/16 09:15 142/98 12/16/16 08:00 94 Room Air 12/16/16 08:00 70 16 144/89 94 Room Air 12/16/16 06:46 70 20 142/98 94 Room Air Notes Mental Status: alert / awake / arousable, participated in evaluation Pt Amnestic to Procedure: Yes Nausea / Vomiting: adequately controlled Pain: adequately controlled Airway Patency, RR, SpO2: stable & adequate BP & HR: stable & adequate Hydration State: stable & adequate Anesthetic Complications: no major complications apparent
[2016-12-16] MEDS ORDERED: RXC5 PO (20:17)
[2016-12-16] MEDS ORDERED: FLM4 PO (20:17)
[2016-12-16] MEDS ORDERED: POTATAB2 PO (20:17)
[2016-12-16] MEDS ORDERED: PHEN-1043 PO (20:17)
--- NOTE | 2016-12-16 20:29 | Discharge Instructions ---
Discharge Instructions Date of Service Dec 16, 2016. Admission Reason for Admission: Left Ureteral Stone Discharge Discharge Diagnosis / Problem: Left Ureteral Stone, possibly Uric Acid Discharge Goals Goal(s): Decrease discomfort, Improve function, Diagnostic testing, Therapeutic intervention Activity Recommendations Activity Limitations: resume your previous activity Driving or Machine Use: do not drive if taking oxycodone . Instructions / Follow-Up Instructions / Follow-Up Please follow-up with your primary care physician Please follow-up with Dr. Hancock, urology, for removal of stent in ~ 12 days Take Flomax daily Take Pyridium as needed for bladder pain Take oxycodone as needed for pain Take Urocit K twice daily for about a month Current Hospital Diet Patient's current hospital diet: Regular Diet Discharge Diet Recommended Diet: Regular Diet Procedures Procedures Performed: Cystoscopy, Left ureteral laser lithotripsy, Left Ureteral Stent Insertion Pending Studies Studies pending at discharge: no Medical Emergencies . Who to Call and When: Medical Emergencies: If at any time you feel your situation is an emergency, please call 911 immediately. . Non-Emergent Contact Non-Emergency issues call your: Primary Care Provider, Urologist Call Non-Emergent contact if: you have a fever, your pain is not controlled, your pain is worsening . . "Provider Documentation" section prepared by Anahi Castillo. . VTE Core Measure Inpt VTE Proph given/why not?: SCD's [place] Drug Monitoring Program Search Results: patient reviewed within database, no issues identified
--- NOTE | 2016-12-16 20:52 | Discharge Summary ---
Discharge Summary Date of Service Dec 16, 2016. Discharge Summary Admission Date: Dec 16, 2016 at 08:52 Discharge Date: Dec 16, 2016 Discharge Disposition: Home Principal Diagnosis: L Obstructing Ureteral Stone, likely Uric Acid Acute Kidney Injury Medication Reconciliation New Medications: Potassium Citrate (Alkalinizer (Urocit-K 10) 1,080 Mg Tab 1 TAB PO BID for 30 Days, #60 TAB 0 Refills Oxycodone HCl (Oxycodone HCl) 5 Mg Tab 5 MG PO Q6 PRN for Pain for 3 Days, #12 TAB Phenazopyridine HCl (Phenazopyridine HCl) 200 Mg Tab 200 MG PO TID PRN for Bladder pain for 3 Days, #9 TAB Tamsulosin HCl (Tamsulosin HCl) 0.4 Mg Cap 0.4 MG PO HS for 30 Days, #30 CAP Continued Medications: Albuterol Hfa (Ventolin Hfa) 200 Puffs/60398 Mcg Aers 2 PUFFS INH Q4H PRN for SOB/Wheezing, #1 INHALER Aspirin (Aspirin Chewable) 81 Mg Chew 81 MG PO DAILY, TAB Clopidogrel (Plavix) 75 Mg Tab 75 MG PO DAILY, TAB Ezetimibe (Zetia) 10 Mg Tab 10 MG PO DAILY, TAB Hydrochlorothiazide (Hctz) 25 Mg Tab 12.5 MG PO Q2D, TAB Isosorbide Mononitrate Ext Rel (Imdur Ext Rel) 60 Mg Ertab 60 MG PO QAM, TAB Lisinopril (Zestril) 20 Mg Tab 10 MG PO DAILY, TAB 1/2 TABLET DOSE Metoprolol Tartrate (Lopressor) 100 Mg Tab 100 MG PO DAILY, TAB Nitroglycerin (Nitrostat) 0.4 Mg Tab 0.4 MG UT PRN PRN for Chest Pain, BTL Rosuvastatin Calcium (Crestor) 40 Mg Tab 40 MG PO DAILY, TAB Spironolactone (Aldactone) 25 Mg Tab 25 MG PO QAM, TAB Ubiquinol (Ubiquinol) 100 Mg Cap 50 MG PO DAILY Admission Information HPI (per Admitting provider): 61 year old male with PMH of Kidney stone with laser lithotripsy about 2 yrs ago , HTN, Dyslipidemia, Ischemic heart dx presents to the Emergency Room with complaints of left sided flank pain that started last night. Pt said that this morning pain got worst. grade his pain about 9/10 in severity. he said that the pain is sharp and radiated across his left L lower abdomen. He said that that this pain feels similar like his kidney stone he had 2 yrs ago. He said that his urine is dark. He denies any headaches, fever, chills, chest pain, palpitation shortness of breath, or abdominal pain. He currently feels nauseated. He has only taken Tylenol for the pain that helped him a little bit. In the ER he received dilaudid that helped with the pain. He had a CT abd/ pelvis done that showed Left obstructing ureteral stone. Physical Exam (per Admitting): General Appearance: WD/WN, no apparent distress Head: normocephalic, atraumatic Eyes: normal inspection, PERRL, EOMI ENT: normal ENT inspection, hearing grossly normal Neck: supple, no JVD Respiratory/Chest: lungs clear, normal breath sounds, no respiratory distress, no accessory muscle use Cardiovascular: regular rate, rhythm, no JVD, no murmur Abdomen/GI: normal bowel sounds, soft Back: + left CVA tenderness Extremities/Musculoskelatal: no calf tenderness Neurologic/Psych: program aide group work II-XII nml as tested, no motor/sensory deficits, alert , oriented x 3 Skin: warm/dry, no rash Lymphatic: no adenopathy Hospital Course This is a 61 year old male with a PMH of recurrent kidney stones s/p lithotripsy , CAD and previous NSTEMI s/p stents x2, HTN, HLD - presents with L ureteral stone. He had L flank pain that brought him to the ER. CT showed this L ureteral stone. He had stent placed by urology this evening. Feels better, good PO intake, pain controlled; no fevers/chills. Currently denies any symptoms. VITALS: Last Vital Signs Documentation Date Time Temp Pulse Resp B/P (MAP) Pulse Ox O2 Delivery O2 Flow Rate FiO2 12/16/16 19:58 36.8 77 18 148/92 (110) 96 Room Air 12/16/16 17:16 3 GEN: no acute distress CVS: +S1, S2, RRR LUNGS: CTA b/l, no wheezing ABD: soft, NT/ND EXT: no edema L obstructing ureteral calculus with hydronephrosis Urology saw the patient, stent was placed. Recommendation made to d/c patient home today. Following Recommendations were made: Flomax daily, Pyridium TID PRN x3 days, Urocit K BID x30 days, oral pain medications will make follow-up for patient to see primary care physician urology follow-up for stent removal in ~ 12 days Acute Kidney Injury baseline creatinine around 1.1-1.2 creatinine on admission was around 1.5 outpatient PCP follow-up to recheck kidney function and electrolytes can continue outpatient medications, including diuretics for now CAD hx. of NSTEMI s/p stents stable, no symptoms continue current cardiac medications HTN blood pressure stable continue home medications DVT ppx ambulation, SCDs FULL CODE Plan to d/c home today (12/16) Total time spent on discharge = 45 minutes This includes examination of the patient, discharge planning, medication reconciliation, and communication with other providers. Discharge Instructions Please follow-up with your primary care physician Please follow-up with Dr. Hancock, urology, for removal of stent in ~ 12 days Take Flomax daily Take Pyridium as needed for bladder pain Take oxycodone as needed for pain Take Urocit K twice daily for about a month
[2016-12-16] MEDS ORDERED: TAMSULOSIN HCL 0.4 MG CAP PO SCH (21:00)
--- NOTE | 2016-12-16 21:51 | DIAGNOSTIC IMAGING REPORT ---
INTRAOPERATIVE RADIOGRAPH CLINICAL HISTORY: Left ureteral stent placement. Fluoroscopy time: 29 seconds. FINDINGS: A single spot fluoroscopic view of the left pelvis is presented. Correlation is made with abdominal CT dated 12/16/2016. The provided image shows the distal end of a left renal stent in position. The tip is coiled in the region of the bladder. IMPRESSION: Intraoperative image from a left ureteral stent placement procedure as above. See operative report for detailed findings. Electronically signed by: Trip Carmona M.D. 12/16/2016 9:50 PM Dictated Date/Time: 12/16/2016 9:48 PM
[2016-12-17] MEDS ORDERED: UBIQUINOL 50 MG PO SCH (09:00)
[2016-12-17] MEDS ORDERED: METOPROLOL TARTRATE 100 MG TAB PO SCH (09:00)
[2016-12-17] MEDS ORDERED: EZETIMIBE 10MG TAB PO SCH (09:00)
[2016-12-17] MEDS ORDERED: ROSUVASTATIN CALCIUM 20 MG TAB PO SCH (09:00)
[2016-12-17] MEDS ORDERED: ISOSORBIDE MONONITRATE 60 MG TABCR PO SCH (09:00)
== END 2016-12-16 21:18 | disposition home or self-care (01) | DRG 660 ==
LOC: C.EDB 05:28 → C.MSN 08:52 → ENRESERV 09:03
PROVIDERS: ADMIT Internal Medicine; ATTEND Internal Medicine
PROC: 0T774DZ Dilation of Left Ureter with Intraluminal Device, Percutaneous Endoscopic Approach (ICD-10-PCS; principal; 2016-12-16 15:00)
PROC: 0TC74ZZ Extirpation of Matter from Left Ureter, Percutaneous Endoscopic Approach (ICD-10-PCS; principal; 2016-12-16 15:00)
PROC: 0TJD8ZZ Inspection of Urethra, Via Natural or Artificial Opening Endoscopic (ICD-10-PCS; principal; 2016-12-16 15:00)
DX: N13.2 Hydronephrosis with renal and ureteral calculous obstruction (principal); N17.9 Acute kidney failure, unspecified; I25.10 Atherosclerotic heart disease of native coronary artery without angina pectoris; J45.909 Unspecified asthma, uncomplicated; I10 Essential (primary) hypertension; E78.5 Hyperlipidemia, unspecified; K57.90 Diverticulosis of intestine, part unspecified, without perforation or abscess without bleeding; I25.2 Old myocardial infarction; Z79.82 Long term (current) use of aspirin

== ENCOUNTER 2017-06-09 12:08 | Emergency (ER) | payer OTHER ==
[~2017-06-09] VITALS: Ht 188 cm; Wt 92.8 kg
[~2017-06-09 12:08] MED LIST changes: -ALBUAER19 INH; -CTP/1 PO; +FLM4 PO; -HYDR-5688 PO; +HYDR25TA4 PO; -HYT/2 PO; +ISOS60TA25 PO; +LISI-725 PO; -NITR0.4S UT; +NTRGSL/4 UT; +PHEN-1043 PO; +POTATAB2 PO; +ROSU40TA PO; +RXC5 PO; +SPIR25TA PO; +UBIQ1CAP8 PO; +VNTHFA/IN INH
[2017-06-09 12:14] VITALS: TEMP 36.8; Ht 188 cm; Wt 92.8 kg
[2017-06-09] MEDS ORDERED: SODIUM CHLORIDE 0.9% 1000ML 500 ML IV STA (12:28)
[2017-06-09] MEDS ORDERED: ONDANSETRON INJ 2 MG/ML 2 ML VIAL IV STA (12:28)
[2017-06-09] MEDS ORDERED: MoRPHine SULFATE 10 MG/ML CARP/VIAL IV PRN (12:30)
[2017-06-09 12:43] LABS: HEMATOCRIT 44.6 % (42-52); HEMOGLOBIN 14.9 g/dL (14.0-18.0); MEAN CELL VOLUME 92.7 fL (80-100); MEAN CORPUSCULAR HGB CONC 33.4 g/dl (32-36); MEAN PLATELET VOLUME 10.3 fL (7.4-10.4); PLATELET COUNT 202 K/uL (130-400); RED CELL DISTRIBUTION WIDTH CV 13.6 % (11.5-14.5); WHITE BLOOD COUNT 10.02 K/uL (4.8-10.8)
[2017-06-09 13:02] LABS: ALBUMIN 3.9 gm/dl (3.4-5.0); CALCIUM 9.6 mg/dl (8.5-10.1); CREATININE 1.43 mg/dl (0.60-1.40)
[2017-06-09 13:05] LABS: TOTAL PROTEIN 8.1 gm/dl (6.4-8.2)
--- NOTE | 2017-06-09 13:29 | DIAGNOSTIC IMAGING REPORT ---
ABD/PELVIS WITHOUT FOR STONE CT DOSE: 1705.57 mGy.cm HISTORY: Flank pain. Hematuria. EVALUATE FLANK PAIN/HEMATURIA TECHNIQUE: Multiaxial CT images of the abdomen and pelvis were performed without the use of intravenous and oral contrast according to the standard department stone protocol. A dose lowering technique was utilized adhering to the principles of ALARA. COMPARISON STUDY: 12/16/2016 FINDINGS: Lung bases are clear clear. Minimal scattered benign-appearing pleural thickening lung bases unaltered from the prior exam. The liver spleen and pancreas are unremarkable. Small hiatal hernia. 2 right renal cysts unchanged from the upper abdominal bowel pattern is nonobstructive. The appendix is normal. Sigmoid colon demonstrates components of chronic sigmoid diverticulosis. There is a slight degree of wall thickening. There is no significant pericolonic infiltrative change. There is no evidence for abscess collection or obstruction. Mild bladder wall thickening. Possibly of cystitis is considered. No significant and/or only a trace amount of pericystic infiltrative change of the surrounding fat. Stable postoperative changes right inguinal region. Several small inguinal nodes bilaterally unaltered from the prior exam. The prior exam. Calcification upper pole left kidney no longer is present. Renal vascular calcification of the hilum of the right kidney is unchanged. IMPRESSION: 1. No evidence for an obstructing urinary tract calculus. 2. Normal appendix. 3. Chronic sigmoid diverticulosis. 4. Moderate bladder wall thickening. The above report was generated using voice recognition software. It may contain grammatical, syntax or spelling errors. Electronically signed by: Nelson Aguirre M.D. 06/09/2017 1:28 PM Dictated Date/Time: 06/09/2017 1:22 PM
[2017-06-09] MEDS ORDERED: OXYCODONE IR HOME PACK PO ONE (14:15)
[2017-06-09] MEDS ORDERED: ONDANSETRON HOME PACK 4MG OD TAB PO ONE (14:15)
--- NOTE | 2017-06-09 14:21 | EMERGENCY ROOM VISIT NOTE ---
History Report prepared by Jori: Terri Guerra Under the Supervision of: Dr. Trip Pruitt M.D. First contact with patient: 12:24 Chief Complaint: FLANK PAIN Stated Complaint: PAIN IN LOWER BACK, KIDNEY AREA History of Present Illness The patient is a 61 year old male who presents to the Emergency Room with complaints of worsening right flank pain starting early this morning. The patient states that he felt fine yesterday. He states that the pain does not radiate to his abdomen and stays in his back. The patient currently rates his pain as an 8/10 in severity. He notes that he has had kidney stones in the past and this feels similar to his last one. He reports that his last kidney stone was in December and had to be removed. He denies anything making it better or worse. The patient notes that he tried to take Tylenol and Oxycodone with no relief. He notes that he vomited shortly after taking the Oxycodone so is unsure if it had the chance to help. The patient complains of nausea and vomiting from the pain. He notes that he vomited this morning. The patient denies fevers, pain in his testicles, and feeling sick recently. Source of History: patient Onset: this morning Position: other (right flank) Symptom Intensity: 8/10 Quality: other (similar to past kidney stones) Timing: worsening Associated Symptoms: + nausea, + vomiting, No fevers Note: The patient denies feeling pain in his testicles and feeling sick recently. Review of Systems See HPI for pertinent positives & negatives. A total of 10 systems reviewed and were otherwise negative. Past Medical & Surgical Medical Problems: (1) Asthma, Unspecified, W (Acute) Exacerbation (2) Benign hypertension (3) Coronary artery disease (4) Dyslipidemia (5) Hyperlipidemia Nec/Nos (6) Post percutaneous transluminal coronary angioplasty (7) Unstable angina Family History Cancer Diabetes mellitus Heart disease Hypertension Kidney disease Kidney stones Social History Smoking Status: Former Smoker Alcohol Use: occasionally Drug Use: none Marital Status: Housing Status: lives with significant other Occupation Status: employed Current/Historical Medications Scheduled Aspirin (Aspirin Chewable), 81 MG PO DAILY Clopidogrel (Plavix), 75 MG PO DAILY Ezetimibe (Zetia), 10 MG PO DAILY Hydrochlorothiazide (Hctz), 12.5 MG PO Q2D Isosorbide Mononitrate Ext Rel (Imdur Ext Rel), 60 MG PO QAM Lisinopril (Zestril), 10 MG PO DAILY Metoprolol Tartrate (Lopressor), 100 MG PO DAILY Rosuvastatin Calcium (Crestor), 40 MG PO DAILY Spironolactone (Aldactone), 25 MG PO QAM Ubiquinol (Ubiquinol), 50 MG PO DAILY Scheduled PRN Albuterol Hfa (Ventolin Hfa), 2 PUFFS INH Q4H PRN for SOB/Wheezing Nitroglycerin (Nitrostat), 0.4 MG UT PRN PRN for Chest Pain Oxycodone HCl (Oxycodone HCl), 5 MG PO Q6 PRN for Pain Allergies Coded Allergies: No Known Allergies (Verified , NKA, 06/09/17) Physical Exam Vital Signs Date Time Temp Pulse Resp B/P (MAP) Pulse Ox O2 Delivery O2 Flow Rate FiO2 06/09/17 14:28 68 17 168/112 96 06/09/17 13:52 60 17 161/99 96 Room Air 06/09/17 12:14 36.8 61 18 184/108 96 Room Air Physical Exam GENERAL: Patient is in no acute distress. HEENT: No acute trauma, normocephalic atraumatic, mucous membranes moist, no nasal congestion, no scleral icterus. NECK: No stridor, no adenopathy, no meningismus, trachea is midline. LUNGS: Clear to auscultation bilaterally, no wheeze, no rhonchi, breath sounds equal. HEART: Without murmurs gallops or rubs, regular rate and rhythm. ABDOMEN: Soft, nontender, bowel sounds positive, no hernias, no peritonitis. BACK: Mild right flank discomfort with percussion. EXTREMITIES: No cyanosis, full range of motion of all the joints without pain or difficulty, no signs for acute trauma. Mild left lower extremity edema. No edema to the right lower extremity. NEUROLOGIC: Oriented x 3, no acute motor or sensory deficits, no focal weakness. SKIN: No rash, no jaundice, no diaphoresis. Medical Decision & Procedures ER Provider Diagnostic Interpretation: Radiology results as stated below per my review and radiologist interpretation: ABD/PELVIS WITHOUT FOR STONE CT DOSE: 1705.57 mGy.cm HISTORY: Flank pain. Hematuria. EVALUATE FLANK PAIN/HEMATURIA TECHNIQUE: Multiaxial CT images of the abdomen and pelvis were performed without the use of intravenous and oral contrast according to the standard department stone protocol. A dose lowering technique was utilized adhering to the principles of ALARA. COMPARISON STUDY: 12/16/2016 FINDINGS: Lung bases are clear clear. Minimal scattered benign-appearing pleural thickening lung bases unaltered from the prior exam. The liver spleen and pancreas are unremarkable. Small hiatal hernia. 2 right renal cysts unchanged from the upper abdominal bowel pattern is nonobstructive. The appendix is normal. Sigmoid colon demonstrates components of chronic sigmoid diverticulosis. There is a slight degree of wall thickening. There is no significant pericolonic infiltrative change. There is no evidence for abscess collection or obstruction. Mild bladder wall thickening. Possibly of cystitis is considered. No significant and/or only a trace amount of pericystic infiltrative change of the surrounding fat. Stable postoperative changes right inguinal region. Several small inguinal nodes bilaterally unaltered from the prior exam. The prior exam. Calcification upper pole left kidney no longer is present. Renal vascular calcification of the hilum of the right kidney is unchanged. IMPRESSION: 1. No evidence for an obstructing urinary tract calculus. 2. Normal appendix. 3. Chronic sigmoid diverticulosis. 4. Moderate bladder wall thickening. The above report was generated using voice recognition software. It may contain grammatical, syntax or spelling errors. Electronically signed by: Nelson Aguirre M.D. 06/09/2017 1:28 PM Dictated Date/Time: 06/09/2017 1:22 PM Laboratory Results 06/09/17 12:25 06/09/17 12:25 Test 06/09/17 12:25 06/09/17 12:30 Red Blood Count 4.81 M/uL (4.7-6.1) Mean Corpuscular Volume 92.7 fL (80-100) Mean Corpuscular Hemoglobin 31.0 pg (25-34) Mean Corpuscular Hemoglobin Concent 33.4 g/dl (32-36) RDW Standard Deviation 46.0 fL (36.4-46.3) RDW Coefficient of Variation 13.6 % (11.5-14.5) Mean Platelet Volume 10.3 fL (7.4-10.4) Anion Gap 5.0 mmol/L (3-11) Est Creatinine Clear Calc Drug Dose 64.7 ml/min Estimated GFR () 61.7 Estimated GFR (Non- 53.2 BUN/Creatinine Ratio 20.0 (10-20) Calcium Level 9.6 mg/dl (8.5-10.1) Total Bilirubin 0.5 mg/dl (0.2-1) Aspartate Amino Transf (AST/SGOT) 42 U/L (15-37) Alanine Aminotransferase (ALT/SGPT) 71 U/L (12-78) Alkaline Phosphatase 83 U/L (45-117) Total Protein 8.1 gm/dl (6.4-8.2) Albumin 3.9 gm/dl (3.4-5.0) Globulin 4.2 gm/dl (2.5-4.0) Albumin/Globulin Ratio 0.9 (0.9-2) Lipase 214 U/L (73-393) Urine Color YELLOW Urine Appearance CLOUDY (CLEAR) Urine pH 5.0 (4.5-7.5) Urine Specific [place] 1.027 (1.000-1.030) Urine Protein NEG (NEG) Urine Glucose (UA) NEG (NEG) Urine Ketones NEG (NEG) Urine Occult Blood 1+ (NEG) Urine Nitrite NEG (NEG) Urine Bilirubin NEG (NEG) Urine Urobilinogen NEG (NEG) Urine Leukocyte Esterase NEG (NEG) Urine WBC (Auto) 1-5 /hpf (0-5) Urine RBC (Auto) 0-4 /hpf (0-4) Urine Hyaline Casts (Auto) 1-5 /lpf (0-5) Urine Epithelial Cells (Auto) 5-10 /lpf (0-5) Urine Bacteria (Auto) NEG (NEG) Laboratory results reviewed by me. Medications Administered Medications (Trade) Dose Ordered Sig/Cynthia Route Start Time Stop Time Status Last Admin Dose Admin Sodium Chloride 500 ml @ 999 mls/hr Q31M STAT IV 06/09/17 12:28 06/09/17 12:58 DC 06/09/17 12:52 999 MLS/HR Ondansetron HCl (Zofran Inj) 4 mg NOW STAT IV 06/09/17 12:28 06/09/17 12:31 DC 06/09/17 12:52 4 MG Morphine Sulfate (MoRPHine SULFATE INJ) 6 mg Q15M PRN IV 06/09/17 12:30 06/09/17 14:41 DC 06/09/17 12:53 6 MG Oxycodone HCl (Roxicodone Immediate Rel 5MG Home Pack) 1 homepack UD ONCE PO 06/09/17 14:15 06/09/17 14:16 DC 06/09/17 14:27 1 HOMEPACK Ondansetron HCl (ZOFRAN ODT 4MG Home Pack) 1 homepack UD ONCE PO 06/09/17 14:15 06/09/17 14:16 DC 06/09/17 14:26 1 HOMEPACK ED Course 1227: The patient was evaluated in room C10. A complete history and physical exam was performed. 1228: Ordered Zofran Inj 4 mg IV, NSS 500 ml @ 999 mls/hr IV. 1230: Ordered Morphine Sulfate 6 mg PRN IV pain. 1405: Reevaluated the patient and he is doing better. Discussed results and discharge instructions: He verbalized understanding and agreement. The patient is ready for discharge. 1415: Ordered Ondansetron HCl 1 homepack PO, Oxycodone HCl 1 homepack PO. Medical Decision Differential diagnoses include renal colic, hydronephrosis, UTI, musculoskeletal pain, kidney failure, electrolyte imbalance, nerve impingement. There is no leukocytosis or worrisome anemia. No significant electrolyte abnormality, kidney failure or hepatitis. No pancreatitis. Urinalysis does not show evidence for infection. Abdominal and pelvis CT shows some chronic findings, no acute hydronephrosis, no acute ureteral stone. No bowel obstruction. No free air. The patient presents with right flank pain. He may have a small stone not seen on CT. The pain may be musculoskeletal. He did receive IV morphine, IV saline and IV Zofran, he feels improved. He will be discharged to strain his urine. A few oxycodone for pain. Heat to the area was suggested. If worsening, he will return. Medication Reconcilliation Current Medication List: was personally reviewed by me Blood Pressure Screening Patient's blood pressure: Elevated blood pressure Blood pressure disposition: Referred to PCP Impression Primary Impression: Right flank pain Scribe Attestation The scribe's documentation has been prepared under my direction and personally reviewed by me in its entirety. I confirm that the note above accurately reflects all work, treatment, procedures, and medical decision making performed by me. Departure Information Dispostion Home / Self-Care Referrals Ron Treadwell D.O. (PCP) Forms HOME CARE DOCUMENTATION FORM, IMPORTANT VISIT INFORMATION Patient Instructions My [facility] Additional Instructions strain all your urine oxy ir 1-2 tab every 4 hours for pain zofran 1 tab every 6 hours for nausea fluids rest heat and massage to the area return for fever, vomiting, uncontrolled pain
[2017-06-09 14:28] VITALS: BP 168/112; PULSE 68; O2SAT 96
== END 2017-06-09 14:30 | disposition home or self-care (01) ==
LOC: C.EDB 12:09 → C.EDC 14:30
DX: R10.9 Unspecified abdominal pain (principal); J45.909 Unspecified asthma, uncomplicated; I10 Essential (primary) hypertension; I25.10 Atherosclerotic heart disease of native coronary artery without angina pectoris; E78.5 Hyperlipidemia, unspecified; Z80.9 Family history of malignant neoplasm, unspecified; Z83.3 Family history of diabetes mellitus; Z82.49 Family history of ischemic heart disease and other diseases of the circulatory system; Z84.1 Family history of disorders of kidney and ureter; Z87.891 Personal history of nicotine dependence; Z79.82 Long term (current) use of aspirin; Z79.02 Long term (current) use of antithrombotics/antiplatelets; Z79.899 Other long term (current) drug therapy

== ENCOUNTER 2022-11-26 10:51 | Observation (INO) ==
[2022-11-26 11:37] LABS: Basophils # (auto) 0.05 K/uL (0-0.2); Basophils % (auto) 0.9 %; Eosinophils # (auto) 0.45 K/uL (0-0.50); Eosinophils % (auto) 8.5 %; Hematocrit (blood only) 39.9 % (42.0-52.0); Hemoglobin 13.2 g/dl (14.0-18.0); Immature Granulocytes # (auto) 0.01 K/uL (0.01-0.20); Immature Granulocytes % (auto) 0.2 %; Lymphocytes # (auto) 1.44 K/uL (1.2-3.4); Lymphocytes % (auto) 27.2 %; Mean Corpuscular Hemoglobin 30.1 pg (25.0-34.0); Mean Corpuscular Hgb Conc 33.1 g/dL (32.0-36.0); Mean Corpuscular Volume 91.1 fL (80.0-100.0); Mean Platelet Volume 9.9 fL (9.4-12.4); Monocytes # (auto) 0.45 K/uL (0.11-0.59); Monocytes % (auto) 8.5 %; Neutrophils % (auto) 54.7 %; Platelet Count 211 K/uL (130-400); RDW Coefficient of Variation 13.2 % (11.5-14.5); RDW Standard Deviation 43.5 fL (36.4-46.3); Red Blood Count 4.38 M/uL (4.70-6.10)
[2022-11-26] MEDS ORDERED: SODIUM CHLORIDE 0.9% 1000ML 1,000 ML IV ONE (11:41)
[2022-11-26 11:44] LABS: D Dimer 460 ug/L FEU (0-500); INR 0.9 (0.9-1.1); Partial Thromboplastin Ratio 0.9; Partial Thromboplastin Time 25.9 Seconds (21.0-31.0); Prothrombin Time 10.4 Seconds (9.0-12.0)
[2022-11-26 11:52] LABS: BUN Creatinine Ratio 19.6 (10-20); Calcium 10.1 mg/dl (8.6-10.3); Creatinine Clr Calc Pharmacy 89.2 ml/min; Potassium 4.3 mmol/L (3.5-5.1)
--- NOTE | 2022-11-26 12:07 | XRay Report ---
XR chest 2V PA/lateral CLINICAL HISTORY: Chest pain, nonspecific COMPARISON STUDY: Chest radiograph November 16, 2012. FINDINGS: Lung volumes are normal. Lungs are clear. There is no pneumothorax or pleural effusion. Car diomegaly is unchanged. Mediastinal contours are normal. There is no evidence for pulmonary edema. IMPRESSION: No acute cardiopulmonary findings. Stable cardiomegaly. ACT 112: Negative or not required by law. Electronically signed by: Clarence High M.D. 11/26/2022 12:06 PM
--- NOTE | 2022-11-26 13:58 | Emergency Department Note ---
History of Present Illness General Chief Complaint: Chest Pain Stated Complaint: CHEST PAIN Time Seen by Provider: 11/26/22 11:04 History of Present Illness Provider Complaint: chest pain Onset (ago): hour(s) 1 Duration: now resolved Onset: during rest Pain Location: substernal Pain Radiation: back Severity: moderate Current Pain Intensity: 0 Quality: + heaviness and + dull Relieved By: + nitroglycerin Exacerbated By: + nothing Context: no recent illness, no recent surgery, no recent immobilization, no recent travel, no trauma/injury, no new medications or no history of DVT/PE Associated symptoms: no vomiting, no diaphoresis, no dyspnea, no syncope, no palpitations, no fever or no cough Treatments prior to arrival: aspirin and nitroglycerin Home Medications Medication Instructions Recorded Confirmed Type albuterol sulfate 90 mcg/actuation 2 puff inhalation Q4 PRN Shortness 11/26/22 11/26/22 History aerosol inhaler Of Breath Or Wheezing aspirin 81 mg tablet,delayed 81 mg PO DAILY 11/26/22 11/26/22 History release clopidogrel 75 mg tablet 75 mg PO QAM 11/26/22 11/26/22 History coQ10 (ubiquinol) 100 mg capsule 50 mg PO DAILY 11/26/22 11/26/22 History evolocumab 140 mg/mL subcutaneous 140 mg subcut .[id number] 11/26/22 11/26/22 History pen injector (Juan Mccoy) ezetimibe 10 mg tablet 10 mg PO QAM 11/26/22 11/26/22 History hydrochlorothiazide 25 mg tablet 12.5 mg PO Q OTHER DAY 11/26/22 11/26/22 History isosorbide mononitrate 30 mg 30 mg PO QAM 11/26/22 11/26/22 History tablet,extended release 24 hr metoprolol tartrate 100 mg tablet 100 mg PO QAM 11/26/22 11/26/22 History nitroglycerin 0.4 mg sublingual 0.4 mg sublingual DIRECTED PRN 11/26/22 11/26/22 History tablet (Nitrostat) Chest Pain rosuvastatin 40 mg tablet 40 mg PO QPM 11/26/22 11/26/22 History saw palmetto 500 mg capsule 1,000 mg PO QPM 11/26/22 11/26/22 History spironolactone 25 mg tablet 25 mg PO QAM 11/26/22 11/26/22 History Allergies Allergy/AdvReac Type Severity Reaction Status Date / Time No Known Allergies Allergy NKA Verified 11/26/22 13:12 Past Med/Surg History Medical History Asthma Enlargement of aortic root Heart disease 2011 cath - in-stent restenosis of previously placed bare metal stent to the RCA, referred to [facility] for PCIA of the RCA w/ two LUANA placed HTN (hypertension) Hyperlipidemia Mutation of LDLR gene NSTEMI (non-ST elevated myocardial infarction) 2008. Cardiac catheterization demonstrated two-vessel CAD with probable recent occlusion of the RCA and tandem lesions in the left circumflex obtuse marginal compromising collateral flow to the distal RCA. 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 Beliefs That Will Affect Care: None Current Living Situation: Spouse Other Information That Helps Us Care for You: No Feels Safe at Home: Yes Safety Concerns: Feels Safe At This Time Assistive Devices: Glasses Physical Exam Vital Signs Vital Signs - 24 hr 11/26/22 10:58 11/26/22 11:14 11/26/22 11:16 Temperature 36.5 C Temperature Source Temporal Artery Scan Pulse Rate 57 L Pulse Rate [Apical] 57 L Pulse Rhythm Regular Respiratory Rate 20 19 Respiratory Effort / Characteristics Non-Labored Spontaneous Respiratory Depth Normal Blood Pressure 123/75 Blood Pressure [Left Arm] 92/66 L Blood Pressure Mean 91 Blood Pressure Mean [Left Arm] 74 Pulse Oximetry 95 96 Oxygen Delivery Method Room Air Room Air Room Air Sepsis Recent Fever Within 48 Hours No Sepsis New/Unexplained Change in Mental Status No Sepsis Action Taken by Nursing No Action Required 11/26/22 12:09 Temperature Temperature Source Pulse Rate 51 L Pulse Rate [Apical] Pulse Rhythm Respiratory Rate Respiratory Effort / Characteristics Respiratory Depth Blood Pressure Blood Pressure [Left Arm] Blood Pressure Mean Blood Pressure Mean [Left Arm] Pulse Oximetry Oxygen Delivery Method Sepsis Recent Fever Within 48 Hours Sepsis New/Unexplained Change in Mental Status Sepsis Action Taken by Nursing Physical Exam GENERAL: oriented to person, place, and time. appears well-developed and well- nourished. HENT: Exam performed. - Head: Normocephalic and atraumatic. EYES: Conjunctivae and EOM are normal. Right eye exhibits no discharge. Left eye exhibits no discharge. No scleral icterus. NECK: Normal range of motion. Neck supple. No JVD present. CV: Normal rate, regular rhythm, normal heart sounds and intact distal pulses. There is no peripheral edema. Palpable radial pulses bue. PULM/CHEST: Effort normal and breath sounds normal. No respiratory distress. No stridor. no wheezes. no rales. ABD: The abdomen is soft. There is no tenderness. NEURO: Motor and sensation grossly intact. SKIN: Skin is warm and dry. He is not diaphoretic. PSYCH: normal mood and affect. Behavior is normal. Judgment and thought content normal. Course Course 1104: The patient was evaluated in room B3. A complete history and physical exam was performed Cardiac monitoring: An order was placed for continuous cardiac monitoring. The monitor shows a rate of 50 with sinus rhythm interpreted by me 1225: Vital signs stable. Labs and imaging within normal limits. Moderate HEART score. Patient be admitted to the [facility] team. HEART Score for Major Cardiac Events from [email or web address] on 11/26/2022 All calculations should be rechecked by clinician prior to use RESULT SUMMARY: 4 points Moderate Score (4-6 points) Risk of MACE of 12-16.6%. INPUTS: History > 1 = Moderately suspicious EKG > 0 = Normal Age > 1 = 45-64 Risk factors > 2 = >= risk factors or history of atherosclerotic disease Initial troponin > 0 = <=ormal limit Administered Medications Discontinued Medications Sodium Chloride (Nss 1000ml) 1,000 mls @ 999 mls/hr IV .Q1H1M ONE Stop: 11/26/22 12:41 Last Infusion: 11/26/22 12:46 Dose: 0 mls/hr Documented By: Admin: 11/26/22 11:44 Dose: 999 mls/hr Documented By: DELFINO Medical Decision Making Laboratory Data Attestation: I reviewed the patient's lab results. 11/26/22 11:14 11/26/22 11:14 Labs: Lab Results 11/26/22 11/26/22 11/26/22 Range/Units 11:14 11:14 11:14 WBC 5.30 (4.8-10.8) K/ul RBC 4.38 L (4.70-6.10) M/uL Hgb 13.2 L (14.0-18.0) g/dl Hct 39.9 L (42.0-52.0) % MCV 91.1 (80.0-100.0) fL MCH 30.1 (25.0-34.0) pg MCHC 33.1 (32.0-36.0) g/dL RDW Std Deviation 43.5 (36.4-46.3) fL RDW Coeff of Roseline 13.2 (11.5-14.5) % Plt Count 211 (130-400) K/uL MPV 9.9 (9.4-12.4) fL Immature Gran % (Auto) 0.2 % Neut % (Auto) 54.7 % Lymph % (Auto) 27.2 % Becker % (Auto) 8.5 % Eos % (Auto) 8.5 % Baso % (Auto) 0.9 % Neut # (Auto) 2.90 (1.40-6.50) K/uL Lymph # (Auto) 1.44 (1.2-3.4) K/uL Becker # (Auto) 0.45 (0.11-0.59) K/uL Eos # (Auto) 0.45 (0-0.50) K/uL Baso # (Auto) 0.05 (0-0.2) K/uL Immature Gran # (Auto) 0.01 (0.01-0.20) K/uL PT 10.4 (9.0-12.0) Seconds INR 0.9 (0.9-1.1) APTT 25.9 (21.0-31.0) Seconds PTT Ratio 0.9 D-Dimer 460 (0-500) ug/L FEU Sodium 141 (136-145) mmol/L Potassium 4.3 (3.5-5.1) mmol/L Chloride 110 H (98-107) mmol/L Carbon Dioxide 27 (21-32) mmol/L Anion Gap 4 (3-11) BUN 22 (6-23) mg/dl Creatinine 1.12 (0.6-1.4) mg/dl Est Cr Clr Drug Dosing 89.2 ml/min Est GFR ( Amer) 80.0 ml/min Est GFR (Non-Af Amer) 69.0 ml/min BUN/Creatinine Ratio 19.6 (10-20) Glucose 104 H (70-99(Fasting)) mg/dl Calcium 10.1 (8.6-10.3) mg/dl Troponin I High Sens 4.0 (0-20) pg/ml Lipase 41 (11-82) U/L SARS-CoV-2, RNA, NAAT (NEGATIVE) 11/26/22 11/26/22 Range/Units 11:14 12:25 WBC (4.8-10.8) K/ul RBC (4.70-6.10) M/uL Hgb (14.0-18.0) g/dl Hct (42.0-52.0) % MCV (80.0-100.0) fL MCH (25.0-34.0) pg MCHC (32.0-36.0) g/dL RDW Std Deviation (36.4-46.3) fL RDW Coeff of Roseline (11.5-14.5) % Plt Count (130-400) K/uL MPV (9.4-12.4) fL Immature Gran % (Auto) % Neut % (Auto) % Lymph % (Auto) % Becker % (Auto) % Eos % (Auto) % Baso % (Auto) % Neut # (Auto) (1.40-6.50) K/uL Lymph # (Auto) (1.2-3.4) K/uL Becker # (Auto) (0.11-0.59) K/uL Eos # (Auto) (0-0.50) K/uL Baso # (Auto) (0-0.2) K/uL Immature Gran # (Auto) (0.01-0.20) K/uL PT (9.0-12.0) Seconds INR (0.9-1.1) APTT (21.0-31.0) Seconds PTT Ratio D-Dimer Cancelled (0-500) ug/L FEU Sodium (136-145) mmol/L Potassium (3.5-5.1) mmol/L Chloride (98-107) mmol/L Carbon Dioxide (21-32) mmol/L Anion Gap (3-11) BUN (6-23) mg/dl Creatinine (0.6-1.4) mg/dl Est Cr Clr Drug Dosing ml/min Est GFR ( Amer) ml/min Est GFR (Non-Af Amer) ml/min BUN/Creatinine Ratio (10-20) Glucose (70-99(Fasting)) mg/dl Calcium (8.6-10.3) mg/dl Troponin I High Sens (0-20) pg/ml Lipase (11-82) U/L SARS-CoV-2, RNA, NAAT NEGATIVE (NEGATIVE) Imaging Data Chest x-ray: Attestation: I personally reviewed and interpreted this imaging study as follows: My impression: Chest x-ray negative. Airway clear. No pneumothorax. No consolidation. No cardiomegaly or cephalization.. No free air under the diaphragm. No fractures of the skeletal structures. Radiologist's impression: Chest X-Ray 11/26/22 11:05 XR chest 2V PA/lateral CLINICAL HISTORY: Chest pain, nonspecific COMPARISON STUDY: Chest radiograph November 16, 2012. FINDINGS: Lung volumes are normal. Lungs are clear. There is no pneumothorax or pleural effusion. Cardiomegaly is unchanged. Mediastinal contours are normal. There is no evidence for pulmonary edema. IMPRESSION: No acute cardiopulmonary findings. Stable cardiomegaly. ACT 112: Negative or not required by law. Electronically signed by: Clarence High M.D. 11/26/2022 12:06 PM ECG Data Attestation: I personally reviewed and interpreted this ECG as follows: Indication: chest pain Rate (beats per minute): 52 Rhythm: normal sinus Findings: no ST depression, no ST elevation or no prolonged QT MDM Narrative 1104: The patient was evaluated in room B3. A complete history and physical exam was performed Cardiac monitoring: An order was placed for continuous cardiac monitoring. The monitor shows a rate of 50 with sinus rhythm interpreted by me 1225: Vital signs stable. Labs and imaging within normal limits. Moderate HEART score. Patient be admitted to the [facility] team. HEART Score for Major Cardiac Events from [email or web address] on 11/26/2022 All calculations should be rechecked by clinician prior to use RESULT SUMMARY: 4 points Moderate Score (4-6 points) Risk of MACE of 12-16.6%. INPUTS: History > 1 = Moderately suspicious EKG > 0 = Normal Age > 1 = 45-64 Risk factors > 2 = >= risk factors or history of atherosclerotic disease Initial troponin > 0 = <=ormal limit Impression & Plan Chest pain Discharge Plan Visit Data Chief Complaint: Chest Pain Stated Complaint: CHEST PAIN ED Provider: Keyshawn Rodriguez Discharge Problem: Chest pain Patient Disposition: Admitted As Inpatient Discharge Instructions Interventions: ED Discharge Assessment Last Done: 11/26/22 14:33
--- NOTE | 2022-11-26 14:05 | Electrocardiogram Report ---
Test Reason : Blood Pressure : / mmHG Vent. Rate : 052 BPM Atrial Rate : 052 BPM P-R Int : 174 ms QRS Dur : 086 ms QT Int : 422 ms P-R-T Axes : 047 016 007 degrees QTc Int : 392 ms Sinus bradycardia Nonspecific ST and T wave abnormality Abnormal ECG When compared with ECG of 16-NOV-2012 15:16, Nonspecific T wave abnormality, improved in Lateral leads Confirmed by Oscar Zepeda ([id number]) on 11/26/2022 2:04:47 PM Referred By: Confirmed By:Oscar Zepeda
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
[2022-11-26] MEDS ORDERED: NITROGLYCERIN SL 0.4 MG/TAB TAB SL PRN (14:46)
[2022-11-26] MEDS ORDERED: ALBUTEROL HFA 8 GM INHALER INH PRN (14:46)
--- NOTE | 2022-11-26 15:02 | Cardiology Consultation ---
Date of Consultation November 26, 2022 Assessment & Plan (1) Chest pain: (2) CAD (coronary artery disease), [place] coronary artery: (3) HTN (hypertension): Plan 66-year-old male presents to the ER with atypical chest discomfort. ECG without ischemic changes. Initial high-sensitivity troponin within normal limits. Recommend repeat cardiac enzymes x3 sets. Repeat ECG with any recurrent chest discomfort. Resting 2D transthoracic echocardiogram pending. Further ischemic evaluation pending clinical course. If cardiac enzymes are negative, consider inpatient versus outpatient Lexiscan nuclear stress test. N.p.o. except medications after midnight. History of Present Illness Reason for Consultation: chest pain, h/o OR Requesting Physician: Dr. Jarquin Attending Physician: Sendy Jarquin, DO History of Present Illness 66-year-old patient presents to the emergency department with chest discomfort. Reports working in his basement when he bent over to pick something up. When he stood up abruptly, he noted sharp, substernal chest discomfort radiating to his back. Discomfort was not relieved with rest or sublingual nitroglycerin. Gradually subsided with residual dull ache. Currently rates pain as less than 1/10. Denies any recent exertional chest discomfort or unusual shortness of breath. Previous anginal symptom included chest burning without radiation. Cardiac history includes non-STEMI in November 2008 with cardiac catheterization re vealing recent occlusion of RCA and tandem lesions in the left circumflex obtuse marginal. Collateral flow to the distal RCA noted. Hypokinesis of the inferior wall at the base and mid levels noted with hypertensive heart disease. PCI of the RCA with 2 bare-metal stents placed and PCI of left circumflex obtuse marginal with 1 bare-metal stent placed at that time. Repeat cardiac catheterization performed in July 2011 demonstrating in-stent restenosis of the RCA. Patient was referred to [facility] where 3.5 x 23 mm Xience drug-eluting stents placed x2 to the RCA. Hospitalized again in November 2012 with chest discomfort. A cardiac catheterization demonstrated widely patent coronary stents in the left circumflex obtuse marginal and proximal right coronary artery. Diffuse irregularities of all vasculature with focal 50% narrowing within the PDA of the right coronary artery. Unchanged when compared to catheterization from July 2011. Allergies Allergy/AdvReac Type Severity Reaction Status Date / Time No Known Allergies Allergy NKA Verified 11/26/22 13:12 Home Medications Medication Instructions Recorded Confirmed Type albuterol sulfate 90 mcg/actuation 2 puff inhalation Q4 PRN Shortness 11/26/22 11/26/22 History aerosol inhaler Of Breath Or Wheezing aspirin 81 mg tablet,delayed 81 mg PO DAILY 11/26/22 11/26/22 History release clopidogrel 75 mg tablet 75 mg PO QAM 11/26/22 11/26/22 History coQ10 (ubiquinol) 100 mg capsule 50 mg PO DAILY 11/26/22 11/26/22 History evolocumab 140 mg/mL subcutaneous 140 mg subcut .[id number] 11/26/22 11/26/22 History pen injector (Juan Mccoy) ezetimibe 10 mg tablet 10 mg PO QAM 11/26/22 11/26/22 History hydrochlorothiazide 25 mg tablet 12.5 mg PO Q OTHER DAY 11/26/22 11/26/22 History isosorbide mononitrate 30 mg 30 mg PO QAM 11/26/22 11/26/22 History tablet,extended release 24 hr metoprolol tartrate 100 mg tablet 100 mg PO QAM 11/26/22 11/26/22 History nitroglycerin 0.4 mg sublingual 0.4 mg sublingual DIRECTED PRN 11/26/22 11/26/22 History tablet (Nitrostat) Chest Pain rosuvastatin 40 mg tablet 40 mg PO QPM 11/26/22 11/26/22 History saw palmetto 500 mg capsule 1,000 mg PO QPM 11/26/22 11/26/22 History spironolactone 25 mg tablet 25 mg PO QAM 11/26/22 11/26/22 History Patient History Medical History Asthma Enlargement of aortic root Heart disease 2011 cath - in-stent restenosis of previously placed bare metal stent to the RCA, referred to [facility] for PCIA of the RCA w/ two LUANA placed HTN (hypertension) Hyperlipidemia Mutation of LDLR gene NSTEMI (non-ST elevated myocardial infarction) 2008. Cardiac catheterization demonstrated two-vessel CAD with probable recent occlusion of the RCA and tandem lesions in the left circumflex obtuse marginal compromising collateral flow to the distal RCA. 2 bare metal stents placed in RCA, PCI and 1 bare metal stent of LCX OM Prediabetes Ureterolithiasis Surgical History History of left heart catheterization Family History Father Heart disease Social History Smoking Status: Former smoker Smoking End Date: 20 years ago; Second Hand Exposure: No; Tobacco Cessation Education Requested by Patient: No Hx Alcohol Use: Yes Alcohol type: hard liquor Hx Substance Use: Yes Last Used Substance Other:: yesterday Preferred Language: Guinean Communication Ability: Effective Sleeping Car Porter Required: No Beliefs That Will Affect Care: None Current Living Situation: Spouse Other Information That Helps Us Care for You: No Feels Safe at Home: Yes Safety Concerns: Feels Safe At This Time Assistive Devices: Glasses Review of Systems Review of Systems: All systems reviewed & are unremarkable except as noted in Subjective Physical Exam Constitutional: well developed and well nourished; no acute distress Respiratory: normal respiratory effort; no respiratory distress, no labored breathing and no retractions Auscultation: lungs clear to auscultation bilaterally; no crackles, no rales, no rhonchi and no wheezes Cardiovascular: Rate/Rhythm: regular rate and regular rhythm Heart Sounds: normal S1 and normal S2; no murmur Vessels: radial pulses present; no JVD and no carotid bruit Extremities: + edema (Mild bilateral ankle edema, right greater than left.) Gastrointestinal (Abdomen): Inspection/Auscultation: abdomen normal to inspection and normal bowel sounds; abdomen not distended Percussion/Palpation: abdomen soft; abdomen nontender, no guarding and abdomen not rigid Neurologic: CN's II-XI intact bilaterally and moves all extremities; no focal motor deficits Psychiatric: A+Ox3, euthymic affect Results & Data Vital Signs (Past 12 Hours) Vital Signs Temp Pulse Pulse Resp BP BP Pulse Ox 11/26/22 14:33 36.7 C 52 L 18 112/84 97 11/26/22 13:31 52 L 20 121/77 99 11/26/22 12:09 51 L 11/26/22 11:16 11/26/22 11:14 57 L 19 92/66 L 96 11/26/22 10:58 36.5 C 57 L 20 123/75 95 O2 Del Method 11/26/22 14:33 Room Air 11/26/22 13:31 Room Air 11/26/22 12:09 11/26/22 11:16 Room Air 11/26/22 11:14 Room Air 11/26/22 10:58 Room Air Laboratory Results Cardiac Enzymes 11/26/22 Range/Units 11:14 Troponin I High Sens 4.0 (0-20) pg/ml Coagulation 11/26/22 Range/Units 11:14 PT 10.4 (9.0-12.0) Seconds APTT 25.9 (21.0-31.0) Seconds CBC 11/26/22 Range/Units 11:14 WBC 5.30 (4.8-10.8) K/ul RBC 4.38 L (4.70-6.10) M/uL Hgb 13.2 L (14.0-18.0) g/dl Hct 39.9 L (42.0-52.0) % Plt Count 211 (130-400) K/uL Neut # (Auto) 2.90 (1.40-6.50) K/uL Lymph # (Auto) 1.44 (1.2-3.4) K/uL [place] # (Auto) 0.45 (0.11-0.59) K/uL Eos # (Auto) 0.45 (0-0.50) K/uL Baso # (Auto) 0.05 (0-0.2) K/uL Comprehensive Metabolic Panel 11/26/22 Range/Units 11:14 Sodium 141 (136-145) mmol/L Potassium 4.3 (3.5-5.1) mmol/L Chloride 110 H (98-107) mmol/L Carbon Dioxide 27 (21-32) mmol/L BUN 22 (6-23) mg/dl Creatinine 1.12 (0.6-1.4) mg/dl Glucose 104 H (70-99(Fasting)) mg/dl Calcium 10.1 (8.6-10.3) mg/dl Intake and Output 11/26/22 11/26/22 11/26/22 06:59 14:59 22:59 Intake Total 1000 / 1000 Balance 1000 / 1000 Intake: IV 1000 / 1000 Sodium Chloride 0.9% 1000ML 1, 1000 / 1000 000 ml @ 999 mls/hr IV .Q1H1M ONE Rx#:[id number] Other: Weight 112.5 kg Weight Measurement Method Standing Scale Patient Weight 11/27/22 06:59 Weight 112.5 kg
[2022-11-26] MEDS ORDERED: ROSUVASTATIN CALCIUM 20 MG TAB PO SCH (21:00)
[2022-11-26] MEDS ORDERED: NON-FORMULARY MEDICATION (Saw Palmetto 500 mg Capsule) PO SCH (21:00)
[2022-11-27 05:21] LABS: Chol HDL Ratio 2.1 (0-5); Creatinine Clr Calc Pharmacy 89.7 ml/min; Est GFR (African American) 80.9 ml/min; Est GFR (Non-African American) 69.8 ml/min
[2022-11-27 07:20] LABS: Estimated Average Glucose 137 mg/dl; Hemoglobin A1C 6.4 % (4.5-5.6)
[2022-11-27] MEDS ORDERED: hydroCHLOROthiazide 25 MG TAB PO SCH (09:00)
[2022-11-27] MEDS ORDERED: SPIRONOLACTONE 25 MG TAB PO SCH (09:00)
[2022-11-27] MEDS ORDERED: METOPROLOL TARTRATE 100 MG TAB PO SCH (09:00)
[2022-11-27] MEDS ORDERED: EZETIMIBE 10 MG TABLET PO SCH (09:00)
[2022-11-27] MEDS ORDERED: ASPIRIN 81 MG ECTAB PO SCH (09:00)
[2022-11-27] MEDS ORDERED: ENOXAPARIN INJ 40 MG/0.4 ML SYR SQ SCH (09:00)
[2022-11-27] MEDS ORDERED: NON-FORMULARY MEDICATION (Coq10 (Ubiquinol) 100 mg Capsule) PO SCH (09:00)
[2022-11-27] MEDS ORDERED: CLOPIDOGREL BISULFATE 75 MG TAB PO SCH (09:00)
[2022-11-27] MEDS ORDERED: ISOSORBIDE MONO EXTENDED REL 30 MG TABCR PO SCH (09:00)
[2022-11-27] MEDS ORDERED: REGADENOSON 0.4 MG/5 ML SYR IV ONE (09:46)
--- NOTE | 2022-11-27 11:31 | Cardiology Progress Note ---
Date of Service November 27, 2022 Assessment & Plan (1) Chest pain: (2) CAD (coronary artery disease), [place] coronary artery: (3) HTN (hypertension): Plan 66-year-old male admitted with atypical chest discomfort. No evidence of acute coronary syndrome with negative cardiac enzymes, unchanged ECG, and no regional wall motion abnormalities on echocardiogram. Currently pain-free. Discussed inpatient versus outpatient Lexiscan nuclear stress testing. Patient agreeable to proceed with Lexiscan nuclear stress test as inpatient today. Further recommendations pending results. Admission and Anticipated Discharge Date Admission Date: November 26, 2022 Subjective Patient seen examined the bedside. Chest discomfort has resolved. Feeling well this AM. Cardiac enzymes negative. Echocardiogram revealing normal wall motion. No dysrhythmias on telemetry. Denies orthopnea, PND, or palpitations. Lower extremity edema has improved overnight. Offers no other concerns/complaints. Review of Systems Review of Systems: All systems reviewed & are unremarkable except as noted in Subjective Physical Exam Constitutional: well developed and well nourished; no acute distress Respiratory: normal respiratory effort; no respiratory distress, no labored breathing and no retractions Auscultation: lungs clear to auscultation bilaterally; no crackles, no rales, no rhonchi and no wheezes Cardiovascular: Rate/Rhythm: regular rate and regular rhythm Heart Sounds: normal S1 and normal S2; no murmur Vessels: radial pulses present; no JVD and no carotid bruit Extremities: no edema Gastrointestinal (Abdomen): Inspection/Auscultation: abdomen normal to inspection and normal bowel sounds; abdomen not distended Percussion/Palpation: abdomen soft; abdomen nontender, no guarding and abdomen not rigid Neurologic: CN's II-XI intact bilaterally and moves all extremities; no focal motor deficits Motor/Sensory: no tremor Psychiatric: A+Ox3, euthymic affect Results & Data Vital Signs (Past 12 Hours) Vital Signs Temp Pulse Pulse Resp BP Pulse Ox O2 Del Method 11/27/22 07:53 36.9 C 60 20 117/76 98 Room Air 11/27/22 07:43 56 L 11/27/22 03:28 36.9 C 60 14 127/86 97 Room Air 11/27/22 01:13 55 L Laboratory Results Cardiac Enzymes 11/26/22 11/26/22 11/26/22 Range/Units 11:14 16:46 22:46 Troponin I High Sens 4.0 3.9 4.3 (0-20) pg/ml Coagulation 11/26/22 Range/Units 11:14 PT 10.4 (9.0-12.0) Seconds APTT 25.9 (21.0-31.0) Seconds Lipids 11/27/22 Range/Units 04:16 Triglycerides 73 (0-150) mg/dl Cholesterol 83 (0-200) mg/dl HDL Cholesterol 40 mg/dl Cholesterol/HDL Ratio 2.1 (0-5) CBC 11/26/22 Range/Units 11:14 WBC 5.30 (4.8-10.8) K/ul RBC 4.38 L (4.70-6.10) M/uL Hgb 13.2 L (14.0-18.0) g/dl Hct 39.9 L (42.0-52.0) % Plt Count 211 (130-400) K/uL Neut # (Auto) 2.90 (1.40-6.50) K/uL Lymph # (Auto) 1.44 (1.2-3.4) K/uL [place] # (Auto) 0.45 (0.11-0.59) K/uL Eos # (Auto) 0.45 (0-0.50) K/uL Baso # (Auto) 0.05 (0-0.2) K/uL Comprehensive Metabolic Panel 11/26/22 11/27/22 Range/Units 11:14 04:16 Sodium 141 (136-145) mmol/L Potassium 4.3 (3.5-5.1) mmol/L Chloride 110 H (98-107) mmol/L Carbon Dioxide 27 (21-32) mmol/L BUN 22 (6-23) mg/dl Creatinine 1.12 1.11 (0.6-1.4) mg/dl Glucose 104 H (70-99(Fasting)) mg/dl Calcium 10.1 (8.6-10.3) mg/dl Intake and Output 11/26/22 11/27/22 11/27/22 22:59 06:59 14:59 Intake Total 440 / 1680 240 / 1680 Balance 440 / 1680 240 / 1680 Intake: Oral 440 / 680 240 / 680 Other: # Unmeasured Voids 2 3 Weight 112.2 kg Weight Measurement Method Built in [facility] (1) Chest pain Chest pain type: unspecified Qualified Code(s): R07.9 - Chest pain, unspecified
--- NOTE | 2022-11-27 12:25 | Electrocardiogram Report ---
Test Reason : Blood Pressure : / mmHG Vent. Rate : 054 BPM Atrial Rate : 054 BPM P-R Int : 158 ms QRS Dur : 068 ms QT Int : 434 ms P-R-T Axes : 028 009 042 degrees QTc Int : 411 ms Sinus bradycardia Early repolarization Otherwise normal ECG When compared with ECG of 26-NOV-2022 11:05, Nonspecific T wave abnormality has replaced inverted T waves in Inferior leads Confirmed by Oscar Zepeda ([id number]) on 11/27/2022 12:24:40 PM Referred By: Ron Treadwell Confirmed By:Oscar Zepeda
--- NOTE | 2022-11-27 14:41 | Myocardial Perfusion Study ---
Date of Service November 27, 2022 Myocardial Perfusion Study [facility] Myocardial Perfusion Study Report Indication: Atypical chest pain, history of RCA and obtuse marginal stenting. Stress test report: Patient performed stress test according to Lexiscan protocol for 3 minutes and 18 seconds. Workload of 1.0 METS achieved. Resting heart rate of 63 bpm peter to a maximal heart rate of 99 bpm. This value represents 63% of the maximal, age-predicted heart rate. The resting blood pressure of 98/69 mmHg, peter to a maximum blood pressure of 106/66 mmHg. Stress test was stopped due to completion of protocol. Normal heart rate and blood pressure response to Lexiscan infusion. Symptoms: "Unusual chest sensation". No chest pain or shortness of breath. Resting ECG: Normal sinus rhythm with nonspecific ST-T wave abnormality. Stress ECG: No ischemia Conclusion: No ECG evidence of Lexiscan induced ischemia. Nuclear stress test report: For the stress portion of the study 31 mCi of Tc 99m Cardiolite IV was injected at 13 10 PM on 11/27/2022. 30 minutes following the injection imaging of the heart was performed in multiple projections. For the rest portion of the study 10.7 mCi of Tc 99m Cardiolite was injected at 11:30 AM. 1 hour following the injection, imaging of the heart was performed in the same projections. Raw data: There is significant hepatic uptake of isotopic tracer particularly on stress rotating, raw data images. Right ventricle: Grossly normal size and function. Gated SPECT imaging: Normal left ventricular wall motion. Calculated left ventricular ejection fraction 65%. Resting images: There is a small defect of mild intensity involving the basal inferior wall. Otherwise normal perfusion. Stress images: There is a small defect of mild intensity involving the basal inferior wall. No significant reversibility to suggest ischemia. The remaining left ventricular myocardial wall segments demonstrate normal perfusion. Base inferior defect likely secondary to soft tissue attenuation artifact given normal wall motion on gated SPECT imaging. Conclusion: 1. Lexiscan nuclear stress test is negative for ischemia or scar. 2. Normal gated SPECT study with a calculated left ventricular ejection fraction 65%.
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
== END 2022-11-27 17:50 | disposition home or self-care (01) ==
LOC: ED 10:51 → 4W 10:51 → SUATTDRO 13:07 → 4W 14:33